=== PATIENT | female | born 1965 | race Caucasian/White ===

== ENCOUNTER 2018-06-26 06:35 | Inpatient (IN) ==
--- NOTE | 2018-06-01 15:58 | PAT Medication Instructions ---
Medication Instructions Date of Service June 01, 2018 Home Medications Colagen 1 dose PO QAM calcium carbonate-vitamin D3 1 tab PO HS carvedilol 12.5 mg PO BID cyanocobalamin (vitamin B-12) 5,000 mcg SUBLINGUAL QAM hydrochlorothiazide 25 mg PO QAM lactobacillus combination no.4 3,000 mmu cells PO QAM levothyroxine 25 mcg PO HS multivitamin 2 cap PO QAM olmesartan 40 mg PO HS pantoprazole 40 mg PO HS turmeric 1 dose PO QAM STOP taking 2 weeks before surgery (or as soon as possible if surgery is within 2 weeks) Colagen 1 dose PO QAM turmeric 1 dose PO QAM DO NOT take the morning of surgery cyanocobalamin (vitamin B-12) 5,000 mcg SUBLINGUAL QAM hydrochlorothiazide 25 mg PO QAM lactobacillus combination no.4 3,000 mmu cells PO QAM multivitamin 2 cap PO QAM Take morning of surgery With a small sip of water, OTHERWISE NOTHING TO EAT OR DRINK AFTER MIDNIGHT: carvedilol 12.5 mg PO BID Take evening before surgery calcium carbonate-vitamin D3 1 tab PO HS carvedilol 12.5 mg PO BID levothyroxine 25 mcg PO HS olmesartan 40 mg PO HS pantoprazole 40 mg PO HS Other Notes If you have any questions please call us at [phone] or [phone] or [phone] or [phone]
--- NOTE | 2018-06-04 09:57 | Anesthesiology Consultation ---
Date of Service June 04, 2018 Assessment & Plan (1) Encounter for pre-operative examination: Chart Review Chart Review: Acceptable Risk for Surgery and Patient seen in Pre Admission Testing Teaching & Discussion Pre-Anesthesia Teaching/Discussion Notes: Instructed NPO after midnight before surgery,except medications with 15 cc of water. Medication instructions provided according to the PAT guidelines. History Surgery Operation Date: 06/26/18 08:50 Proposed Procedures p Left Arthroplasty Uni Compartment Versus - Guanakito Donovan MD s Left Total Knee Arthroplasty - Guanakito Donovan MD Height/Weight Height: 5 ft 4 in Weight: 122.9 kg Allergies Allergy/AdvReac Type Severity Reaction Status Date / Time No Known Allergies Allergy Verified 05/31/18 15:27 Medications Home Medications Medication Instructions Recorded Confirmed Last Taken Colagen 1 dose PO QAM 05/31/18 05/31/18 Unknown calcium carbonate-vitamin D3 1 tab PO 05/31/18 05/31/18 Unknown [Calcium 500 + D (D3)] carvedilol 12.5 mg PO BID 05/31/18 05/31/18 Unknown cyanocobalamin (vitamin B-12) 5,000 mcg SUBLINGUAL QAM 05/31/18 05/31/18 Unknown [Vitamin B-12] hydrochlorothiazide 25 mg PO QAM 05/31/18 05/31/18 Unknown lactobacillus combination no.4 3,000 mmu cells PO QAM 05/31/18 05/31/18 Unknown [Probiotic] levothyroxine 25 mcg PO 05/31/18 05/31/18 Unknown multivitamin 2 cap PO QAM 05/31/18 05/31/18 Unknown olmesartan 40 mg PO 05/31/18 05/31/18 Unknown pantoprazole 40 mg PO 05/31/18 05/31/18 Unknown turmeric 1 dose PO QAM 05/31/18 05/31/18 Unknown Past Medical History Medical History Hypertension (Chronic) GERD (gastroesophageal reflux disease) CONTROLLED Hypothyroidism Morbid obesity Past Surgical History Surgical History History of cholecystectomy History of colonoscopy History of herniorrhaphy VENTRAL History of hysterectomy BSO Hx of LASIK Past Anesthesia History No Hx of Anesthesia Complications and No Family Hx of Anesthesia Complications History of PONV No Motion Sickness Screening History of Motion Sickness: Yes (OCCASIONAL) Social History Smoking Status: Never smoker Do You Dip or Chew Tobacco: No Hx Alcohol Use: No Hx Substance Use: No Exercise / Class Metabolic Activity III < 4 Walking/Shop/Light housework Review of Systems Patient denies chest pain, shortness of breath, cough, wheezing, palpitations. Physical Exam Vital Signs VITALS BP 117/76 P 69 TEMP 98.0 SP02 94%RA RESP 16 PHYSICAL Full neck and c-spine range of motion. Full TMJ range of motion. TMD 3 finger breaths Mallampati Score 2 Dentition: upper/lower partial Lungs: clear throughout to auscultation Cardiac: regular rate and rhythm, no murmurs noted Spine: normal Carotid arteries: negative bruit Extremities: no edema Large neck Testing Electrocardiogram Date: 06/04/18 NSR at 65bpm. NS TWA. Chest X-Ray Date: 06/04/18 Findings: + NAD Laboratory Results 06/04/18 10:10 06/04/18 10:10 Blood Type B Positive 06/04/18 10:10 Antibody Screen NEGATIVE 06/04/18 10:10 PT 10.9 Seconds (9.0-12.0) 06/04/18 10:10 INR 1.1 (0.9-1.1) 06/04/18 10:10 APTT 26.2 Seconds (21.0-31.0) 06/04/18 10:10
--- NOTE | 2018-06-04 10:44 | XRay Report ---
XR chest Pre-admission PA/Lat CLINICAL HISTORY: pat preoperative evaluation COMPARISON STUDY: No previous studies for comparison. FINDINGS: The bones soft tissues and hemidiaphragms are normal. The cardiomediastinal silhouette is n ormal. The lungs are clear. The pulmonary vasculature is normal. IMPRESSION: Negative chest. The above report was generated using voice recognition software. It may contain grammatical, syntax or spelling errors. Electronically signed by: Moom Otoole M.D. 06/04/2018 10:43 AM
[2018-06-04 10:58] LABS: Basophils # (auto) 0.01 K/uL (0-0.2); Basophils % (auto) 0.2 %; Eosinophils # (auto) 0.14 K/uL (0-0.5); Eosinophils % (auto) 2.8 %; Hematocrit (blood only) 39.7 % (37-47); Hemoglobin 13.2 g/dL (12.0-16.0); Lymphocytes # (auto) 1.37 K/uL (1.2-3.4); Mean Corpuscular Hgb Conc 33.2 g/dL (32-36); Mean Corpuscular Volume 87.4 fL (80-100); Monocytes # (auto) 0.31 K/uL (0.11-0.59); Monocytes % (auto) 6.1 %; Neutrophils # (auto) 3.24 K/uL (1.4-6.5); Neutrophils % (auto) 63.9 %; Platelet Count 244 K/uL (130-400); RDW Coefficient of Variation 13.4 % (11.5-14.5); Red Blood Count 4.54 M/uL (4.2-5.4); White Blood Count 5.07 K/uL (4.8-10.8)
[2018-06-04 11:16] LABS: INR 1.1 (0.9-1.1); Partial Thromboplastin Time 26.2 Seconds (21.0-31.0); Prothrombin Time 10.9 Seconds (9.0-12.0)
[2018-06-04 11:33] LABS: BUN Creatinine Ratio 18.5 (10-20); Calcium 9.4 mg/dl (8.5-10.1); Creatinine Clr Calc Pharmacy 115.9 ml/min; Est GFR (African American) 111.1; Est GFR (Non-African American) 95.9
[2018-06-04 11:34] LABS: C Reactive Protein 1.06 mg/dl (0-0.29)
--- NOTE | 2018-06-21 23:41 | History and Physical Report ---
DATE OF ADMISSION: 06/26/2018 CHIEF COMPLAINT: Left medial knee pain and discomfort. HISTORY OF PRESENT ILLNESS: The patient is a 53-year-old female referred to me by my partner, Dr. Velasquez, for surgical treatment of her left knee. She has about a little over a year history of increasing left knee pain and discomfort which has gradually gotten worse over time. No trauma. Pain is all medial. The patient has been through extensive conservative treatment including injections which provided some temporary relief only. This has become less successful over time. The more she walks, the more it hurts. Pain is all medial. Occasionally giving out. It is affecting her quality of life and her daily activities. She has nighttime pain. She would like to proceed with surgical treatment. PAST MEDICAL HISTORY: 1. Hypertension. 2. Hypothyroidism. 3. Low back pain/sciatica. 4. Gastroesophageal reflux disease. 5. Obesity with a BMI of 46. PAST SURGICAL HISTORY: Include: 1. Hysterectomy. 2. Hernia surgery. 3. Lasik eye surgery. ALLERGIES: None. CURRENT MEDICINES: 1. Calcium plus D. 2. Levothyroxine 25 mcg a day. 3. Pantoprazole 40 mg. 4. Turmeric. 5. Multivitamin. 6. Olmesartan 40 mg a day. 7. Probiotic. 8. Osteo Bi-Flex. SOCIAL HISTORY: A 53-year-old female. The patient is . Lives in [place]. No significant alcohol intake. She has 3 children. FAMILY HISTORY: Noncontributory. REVIEW OF HISTORY: Negative for diabetes, neurologic problems, vascular problems, or bleeding disorders. No chest pain or shortness of breath. No history of DVT or PE. No bleeding problems. PHYSICAL EXAMINATION: GENERAL: Reveals a pleasant, middle-aged female. Looks to be in pretty good health. HEENT: Benign. NECK: Supple. No lymphadenopathy. LUNGS: Clear to auscultation. HEART: Has a regular rate and rhythm. ABDOMEN: Soft, nontender, nondistended. EXTREMITIES: Grossly neurovascularly intact except as follows: Examination of the left leg reveals the patient ambulates independently. She has fairly neutral to slight varus alignment to her knee. She has got a small to moderate sized knee effusion. Moderate soft tissue envelope. Range of motion 0-125 degrees. There is no instability. ACL is intact. No pivot. No pain with hip motion. X-RAYS: X-rays of the left knee were reviewed. Shows advanced medial compartment arthritis. She has near complete loss of medial joint space. There may be a small section of AVN of the medial femoral condyle and medial tibial plateau. The lateral compartments were well preserved. With stress testing, the lateral compartment is well preserved. Minimal patellofemoral arthritis. ASSESSMENT: A 53-year-old female with 1-1/2 year history of persistent progressive left medial sided knee pain, unresponsive to conservative treatment. She would like to proceed with definitive treatment. PLAN: We talked about treatment options including partial versus full knee replacement. We are going to plan and take her to the operating room and do a left partial knee replacement. If we get in there and disease is too bad, we will do a full knee replacement. The risks and benefits of this procedure were explained to the patient including but not limited to DVT, PE, , infection, neurological injury, vascular injury, bleeding problem, pain, limited range of motion, stiffness, failure to relieve symptoms, incomplete relief of symptoms, need for further surgery in the future, fracture, leg length inequality, nerve palsy, dislocation, etc. The patient understands and desires to proceed. Informed consent was obtained.
[~2018-06-26 06:35] MED LIST: ACETAMINOPHEN 500 MG TAB PO SCH; BUPIVACAINE LIPOSOME/PF 266 MG, BUPIVACAINE/EPINEPHRINE 50 ML, SODIUM CHLORIDE 0.9% 30 ... INFIL SCH; CEFAZOLIN 2000MG 2,000 MG/15 ML SYR IV SCH; FAMOTIDINE 20 MG TAB PO SCH; GABAPENTIN 300 MG x 3 PO SCH; LR 500ML BOLUS, THEN 15ML/HR IV SCH; LR 60ML/HR IV SCH; METOCLOPRAMIDE HCL 10 MG TABLET PO SCH; MIDAZOLAM HCL 1 MG/ML 2ML VIAL ONE; SCOPOLAMINE 1.5 MG TDSY TD SCH; TRANEXAMIC ACID 1,000 MG **IV Intra-op IV SCH
[2018-06-26] MEDS ORDERED: ROPIVACAINE 0.5% 5 MG/ML 30 ML VIAL ONE (06:36)
[2018-06-26] MEDS ORDERED: BUPIVACAINE 0.5 % 5 MG/1 ML PF 10ML VIAL ONE (06:36)
[2018-06-26] MEDS ORDERED: fentaNYL citrate 100 MCG/2 ML VIAL ONE (06:36)
[2018-06-26] MEDS ORDERED: MIDAZOLAM HCL 1 MG/ML 2ML VIAL ONE (06:36)
--- NOTE | 2018-06-26 06:48 | History & Physical Bridge Note ---
Date of Service June 26, 2018 History & Physical Bridge Note I have examined the patient, reviewed the History & Physical and in the interval since the performance of the History & Physical I have noted the following changes of clinical significance: no changes noted
[2018-06-26] MEDS ORDERED: PROPOFOL IV EMULSION 10 MG/ML 20 ML VIAL IV ONE (08:21)
[2018-06-26] MEDS ORDERED: LIDOCAINE HCL 2% 2 ML VIAL/AMP(20MG/ML) INFIL ONE (08:21)
[2018-06-26] MEDS ORDERED: ONDANSETRON INJ 2 MG/ML 2 ML VIAL ONE (08:22)
[2018-06-26] MEDS ORDERED: ePHEDrine sulfate 50 MG/ML AMP IV PRN (08:25)
[2018-06-26] MEDS ORDERED: HYDROmorphone INJ 1 MG/ML SYRINGE IV PRN (08:25)
[2018-06-26] MEDS ORDERED: ATROPINE SULFATE 0.1 MG/ML 10ML SYR IV PRN (08:25)
[2018-06-26] MEDS ORDERED: PHENYLEPHRINE 100MCG/ML 5ML SYR IV PRN (08:25)
[2018-06-26] MEDS ORDERED: KETOROLAC 30 MG/ML VIAL IV PRN (08:25)
[2018-06-26] MEDS ORDERED: ONDANSETRON INJ 2 MG/ML 2 ML VIAL IV PRN ×2 (08:25→12:27)
[2018-06-26] MEDS ORDERED: EPINEPHrine INJ 1 MG/ML AMP ONE (08:53)
[2018-06-26] MEDS ORDERED: BACITRACIN INJ 50,000 UNIT VIAL ONE (08:53)
[2018-06-26] MEDS ORDERED: BUPIVACAINE 0.25% 30 ML VIAL ONE (08:53)
[2018-06-26] MEDS ORDERED: SODIUM CHLORIDE 0.9% PF 50 ML VIAL ONE (08:53)
[2018-06-26] MEDS ORDERED: BUPIVACAINE LIPOSOME 1.3% 266 MG/20 ML VIAL ONE (08:53)
[2018-06-26] MEDS ORDERED: PHENYLEPHRINE 100MCG/ML 5ML SYR ONE (09:44)
[2018-06-26] MEDS ORDERED: PHENYLEPHRINE HCL 10 MG/ML VIAL ONE (09:56)
[2018-06-26] MEDS ORDERED: SODIUM CHLORIDE 0.9% INJ 10 ML VIAL ONE (09:57)
[2018-06-26] MEDS ORDERED: ePHEDrine sulfate 50 MG/ML AMP ONE (09:57)
--- NOTE | 2018-06-26 11:03 | Post Operative Brief Note ---
Immediate Post Op Note v1 Date of Surgery June 26, 2018 Pre & Post Diagnosis Operation Date: 06/26/18 08:50 Pre-Op Diagnosis: Left Knee Advanced Medial Compartment Arthritis Post-Op Diagnosis: Left Knee Advanced Medial Compartment Arthritis Procedure Operation Date: 06/26/18 08:50 Actual Procedures p Left Knee Arthroplasty Unicompartmental(Left) - Guanakito Donovan MD Surgeon Guanakito Donovan MD Superintendent Power Tatiana, PAC Estimated Blood Loss 25 Findings Consistent with Post-Op Diagnosis Fluids 1000 cc Specimens Left Knee Drains Cornelius Catheter (A 16 Lithuanian cornelius catheter was inserted by JOY Swan, without difficulty, clear yellow urine obtained, output to be monitored by Anesthesia.) Anesthesia Type Spinal MAC Complications none Disposition Accompanied Patient To Recovery: No Disposition: Recovery Room
--- NOTE | 2018-06-26 11:28 | XRay Report ---
LEFT KNEE 2 VIEWS History: Left total knee medial unicondylar prosthesis. Degenerative arthritis. Postop. FINDINGS: The patient is status post a left medial unicondylar prosthesis. The hardware is intact. No fracture or dislocation. Skin fabiola are in place. IMPRESSION: Left medial unicondylar prosthesis. No evidence for hardware complication. Electronically signed by: Fabrizio Donaldson M.D. 06/26/2018 11:26 AM
--- NOTE | 2018-06-26 12:09 | Anesthesiology Progress Note ---
Date of Service June 26, 2018 Anesthesia Post Procedure Vital Signs Vital Signs: Temp Pulse Pulse Resp BP Pulse Ox 06/26/18 12:00 36.3 C L 66 14 119/63 99 06/26/18 11:50 62 18 124/68 100 06/26/18 11:40 62 15 117/69 96 06/26/18 11:30 65 19 101/60 100 06/26/18 11:20 68 15 107/68 99 06/26/18 11:10 36.0 C L 67 21 91/56 L 99 06/26/18 07:24 36.4 C L 77 20 146/99 H 95 Transfer of Care Handoff Completed per policy Notes Mental Status: alert / awake / arousable Patient Amnestic to Procedure: Yes Nausea / Vomiting: adequately controlled Pain: adequately controlled Airway Patency, RR, SpO2: stable & adequate BP & HR: stable & adequate Hydration State: stable & adequate Anesthetic Complications: no major complications apparent
[2018-06-26] MEDS ORDERED: METOCLOPRAMIDE HCL INJ 5 MG/ML 2 ML VIAL IV PRN (12:27)
[2018-06-26] MEDS ORDERED: ALUMINUM/MAGNESIUM SUSP 30 ML UDC PO PRN (12:27)
[2018-06-26] MEDS ORDERED: BISACODYL 10 MG SUPP PR PRN (12:27)
[2018-06-26] MEDS ORDERED: NALOXONE HCL 0.4 MG/1 ML VIAL/CARP IV PRN (12:27)
[2018-06-26] MEDS ORDERED: HYDROmorphone INJ 0.5 MG/0.5 ML SYR IV PRN (12:27)
[2018-06-26] MEDS ORDERED: MAGNESIUM HYDROXIDE SUSP 30 ML UDC PO PRN (12:27)
--- NOTE | 2018-06-26 13:40 | Progress Note ---
DATE: 06/26/2018 SUBJECTIVE: A 53-year-old female postop from a left partial knee replacement. She is doing pretty well. Feels just tired. Has not got the sensation back in her legs yet. No chest pain or shortness of breath. Not feeling dizzy or lightheaded. No leg pain. OBJECTIVE: VITAL SIGNS: Temperature 36.5. Vital signs stable. GENERAL: Physical examination shows a pleasant, middle-aged female. She is sitting up in bed and was sleeping when I went in this afternoon. She is easily arousable. LUNGS: Clear to auscultation. HEART: Regular rate and rhythm. ABDOMEN: Soft, nontender, nondistended. EXTREMITIES: Grossly neurovascularly intact except as follows: Examination of the left leg reveals the leg to be well aligned. Toes are pink with brisk refill. She has no significant sensory or motor function yet. X-RAYS: X-rays of the left knee from recovery room reviewed. She has a left partial knee replacement. Components looked to be in good position. No signs of problems. ASSESSMENT: A 53-year-old white female postop from a left partial knee replacement, doing well. Spinal still in effect. Her pain is controlled. PLAN: 1. DVT prophylaxis including thigh-high TEDs, SCDs, and aspirin twice a day. 2. PT/OT. Weight bear as tolerated. Left total knee protocol. 3. Pain control, doing well with current pain regimen. We will have to adjust medicines as the spinal wears off. 4. IV antibiotics x24 hours. 5. Disposition: She is planning to be discharged to home. She is trying to decide whether do home health versus outpatient therapy.
[2018-06-26] MEDS: ACETAMINOPHEN 500 MG TAB PO SCH ×2 (14:24→22:15)
[2018-06-26] MEDS: KETOROLAC 30 MG/ML VIAL IV SCH ×2 (14:25→20:45)
[2018-06-26] MEDS: SODIUM CHLORIDE 0.9% 1000ML 1,000 ML IV SCH ×2 (14:25→22:15)
[2018-06-26] MEDS: CHECK SCOPOLAMINE PATCH PLACEMENT SCH (15:25)
--- NOTE | 2018-06-26 16:54 | Operative Report ---
DATE OF OPERATION: 06/26/2018 SURGEON: Guanakito Donovan MD CRT: JOY Jordan PREOPERATIVE DIAGNOSIS: Left knee medial compartment degenerative joint disease. POSTOPERATIVE DIAGNOSIS: Left knee medial compartment degenerative joint disease. PROCEDURE PERFORMED: Left Biomet Montgomery mobile bearing partial knee replacement. COMPLICATIONS: None. ESTIMATED BLOOD LOSS: 25 mL. FLUID REPLACEMENT: 1000 mL crystalloid fluid replacement. TOURNIQUET TIME: 64 minutes at 300 mmHg. ANESTHESIA: Spinal with adductor canal block. DRAINS: None. SPECIMENS: Left knee sent for pathology. OPERATIVE INDICATIONS: The patient is a 53-year-old female who was referred to me by my partner Dr. Velasquez for surgical treatment of her left knee. She had a fairly long history of left knee pain and discomfort which has gotten significantly worse over the past year. She has been through extensive conservative treatment. Symptoms localized in the medial side of her knee. X-rays show advanced medial compartment arthritis. The patient elected to proceed with operative treatment. OPERATIVE FINDINGS: Operative findings revealed advanced medial compartment DJD. She had grade 4 [id number] disease of the medial femoral condyle and medial tibial plateau. Not much eburnation, but full cartilage loss. The lateral and patellofemoral compartments were fairly well preserved. Moderate size joint effusion. She had osteophytes in the medial compartment. OPERATIVE IMPLANTS: Operative implants consisted of: 1. Biomet Montgomery size small femoral component. 2. Biomet left medial AA tibial tray. 3. Biomet Montgomery left medial size 5 mm mobile-bearing insert. OPERATIVE PROCEDURE: The patient was taken to the operating room, identified and placed on the operating table in supine position. All contact areas were appropriately padded. IV antibiotics were provided by anesthesia team. A spinal anesthetic and adductor canal block had been provided in the holding area. Pacheco catheter was placed in sterile fashion. Left thigh tourniquet was then placed and the left lower extremity was then prepped and draped in usual sterile fashion. Left leg was elevated and exsanguinated with Esmarch and tourniquet was placed at 300 mmHg. An anterior approach to the left knee was then performed through a longitudinal incision centered over the anterior aspect of the knee. The incision extended from the superior pole of the patella to just medial to the tibial tubercle. Sharp dissection was carried through the subcutaneous tissues down to the level of the extensor mechanism. Medial parapatellar arthrotomy incision was made. Slight subperiosteal dissection was carried out medially, taking great care to protect the MCL. The fat pad was resected. I then examined the rest of the knee joint and the lateral patellofemoral compartment looked pretty well preserved. We elected to proceed with a partial knee replacement. The osteophytes were taken off the distal femur. The femur was sized to a size small. The small spoon was placed. The external tibial alignment jig was then placed in the anterior face of the tibia and attached to the small spoon. The tibial guide was pinned in place. Proximal tibial cut was made. Tibia was sized to a size AA. Attention was then drawn to the femur. The distal femur was entered with a sharp drill. Intramedullary terrence was placed. A small femoral template was then placed and attached to the intramedullary terrence. The holes were drilled for the femoral component. Posterior cutting guide was placed and posterior cut was made. The 0 spigot was placed and the distal femur was milled. The medial meniscus was excised. I then trialed the knee and the 4 feeler gauge fit good in flexion and the 2 in extension. Therefore, all implants were removed. A 2 spigot was placed and the distal femur was milled. I then trialed the knee again and the 4 insert fit appropriately in flexion and extension. There was a little bit better in extension. We elected to place these implants. All trial implants were removed. I used the posterior osteophyte cutting guide to remove the posterior osteophyte as well as create the anterior bone resection for the femoral component. Cement drill was used to create some holes in the distal femur for interdigitation. The tibial tray was pinned and the toothbrush blade was used to create the keel for the tibial tray. All extraneous debris was removed. I then trialed the knee one more time and the 5 implant fit most appropriately in flexion and extension. I elected to use these implants. All trial implants were removed again. I irrigated the wound extensively. A single batch of Palacos G cement was mixed. A Biomet Montgomery size AA tibial tray was cemented in place followed by a small femoral component. A 5 sizing spoon was then placed. All extraneous cement was removed. The knee was brought down to 30 degrees show full extension until cement hardened. Final cement check was then performed. I irrigated again extensively. I then trialed the knee one more time and I elected to place the 5 insert. A 5 insert was placed. The knee was irrigated again. I injected locally with 100 mL of a combination of 20 mL of Exparel, 30 mL of normal saline, 50 mL of 0.25% Marcaine with epinephrine. The tourniquet was then let down for a tourniquet time of 64 minutes. Hemostasis was assured with use of electrocautery. The extensor mechanism was then closed with #1 Vicryl suture in a [id number] fashion. Extensor mechanism was checked and found to be intact. Subcutaneous tissues were then closed with #2 Dexon suture in a buried interrupted fashion. Skin was closed with skin fabiola. Leg was then cleaned, dried and a sterile dressing of Xeroform, 4 x 4, sterile cast padding and Jake bandage were applied. The patient then transferred to the recovery room in stable condition. The patient tolerated the procedure well with no complication. All needle and sponge counts were correct at the end of the operation. I attest to the content of the Intraoperative Record and any orders documented therein. Any exception s are noted below.
[2018-06-26] MEDS: CEFAZOLIN 2000MG 2,000 MG/15 ML SYR IV SCH (18:26)
[2018-06-26] MEDS: ASCORBIC ACID 500 MG TAB PO SCH (18:27)
[2018-06-26] MEDS: CARVEDILOL 12.5 MG TAB PO SCH (20:42)
[2018-06-26] MEDS: LEVOTHYROXINE SODIUM 25 MCG TABLET PO SCH (20:43)
[2018-06-26] MEDS: ASPIRIN 81 MG ECTAB PO SCH (20:44)
[2018-06-26] MEDS: DOCUSATE SODIUM 100 MG CAP PO SCH (20:45)
[2018-06-26] MEDS ORDERED: PANTOprazole 40 MG TAB PO SCH (21:00)
[2018-06-26] MEDS ORDERED: CALCIUM 600MG + VIT D 400 IU TAB PO SCH (21:00)
[2018-06-26] MEDS ORDERED: OLMESARTAN MEDOXOMIL 40 MG TAB PO SCH (21:00)
[2018-06-26] MEDS ORDERED: SENNA 8.6 MG TAB PO SCH (21:00)
[2018-06-26] MEDS ORDERED: NURSING DECISION MEDICATION ONE (21:56)
[2018-06-26] MEDS ORDERED: COUGH DROP (SUGAR FREE) LOZ 24 LOZ/1 BOX BUCCAL PRN (22:00)
[2018-06-26] MEDS: TRAMADOL HCL 50 MG TABLET PO PRN (22:15)
[2018-06-27] MEDS: CHECK SCOPOLAMINE PATCH PLACEMENT SCH (00:24)
[2018-06-27] MEDS: KETOROLAC 30 MG/ML VIAL IV SCH ×3 (03:00→13:15)
[2018-06-27] MEDS: CEFAZOLIN 2000MG 2,000 MG/15 ML SYR IV SCH (03:00)
[2018-06-27] MEDS: SODIUM CHLORIDE 0.9% 1000ML 1,000 ML IV SCH (05:48)
[2018-06-27] MEDS: LEVOTHYROXINE SODIUM 25 MCG TABLET PO SCH (05:48)
[2018-06-27] MEDS: ACETAMINOPHEN 500 MG TAB PO SCH ×2 (05:48→14:13)
--- NOTE | 2018-06-27 08:50 | Anesthesiology Progress Note ---
Date of Service June 27, 2018 Anesthesia Post Procedure Vital Signs Vital Signs: Temp Pulse Pulse Pulse Resp BP Pulse Ox 06/27/18 07:44 36.8 C 76 16 141/82 H 93 06/27/18 03:02 37.0 C 76 16 102/64 92 06/26/18 22:57 36.6 C 69 16 129/80 91 06/26/18 16:46 58 L 18 125/71 98 06/26/18 15:09 36.5 C 64 18 116/72 99 06/26/18 14:15 36.4 C L 62 18 117/73 98 06/26/18 13:15 36.3 C L 70 18 146/87 H 95 06/26/18 12:44 72 18 143/83 H 96 06/26/18 12:15 36.5 C 70 18 120/77 96 06/26/18 12:00 36.3 C L 66 14 119/63 99 06/26/18 11:50 62 18 124/68 100 06/26/18 11:40 62 15 117/69 96 06/26/18 11:30 65 19 101/60 100 06/26/18 11:20 68 15 107/68 99 06/26/18 11:10 36.0 C L 67 21 91/56 L 99 Pain Intensity Left Knee: Pain Intensity: 2 Notes Mental Status: alert / awake / arousable and participated in evaluation Patient Amnestic to Procedure: Yes Nausea / Vomiting: adequately controlled Pain: adequately controlled Airway Patency, RR, SpO2: stable & adequate BP & HR: stable & adequate Hydration State: stable & adequate Neuraxial Anesthesia: was administered and sensory block resolved Anesthetic Complications: no major complications apparent and Pt Satisfied with anesthetic care
[2018-06-27] MEDS ORDERED: LACTOBACILLUS ACIDOPHILUS (FLORANEX) TAB PO SCH (09:00)
[2018-06-27] MEDS ORDERED: MULTIVITAMIN TAB PO SCH (09:00)
[2018-06-27] MEDS ORDERED: MULTIVITAMIN PO SCH (09:00)
[2018-06-27] MEDS ORDERED: hydroCHLOROthiazide 25 MG TAB PO SCH (09:00)
[2018-06-27] MEDS ORDERED: TURMERIC PO SCH (09:00)
[2018-06-27] MEDS ORDERED: CYANOCOBALAMIN (VITAMIN B-12) 2,500 MCG TAB.SUBL SL SCH (09:00)
[2018-06-27] MEDS ORDERED: COLAGEN PO SCH (09:00)
[2018-06-27] MEDS: CARVEDILOL 12.5 MG TAB PO SCH (09:07)
[2018-06-27] MEDS: ASPIRIN 81 MG ECTAB PO SCH (09:07)
[2018-06-27] MEDS: ASCORBIC ACID 500 MG TAB PO SCH (09:09)
[2018-06-27] MEDS: DOCUSATE SODIUM 100 MG CAP PO SCH (09:09)
[2018-06-27] MEDS: TRAMADOL HCL 50 MG TABLET PO PRN (09:12)
[2018-06-27 11:46] VITALS: BP 144/80; TEMP 97.5; O2SAT 92
--- NOTE | 2018-06-27 15:07 | Progress Note ---
DATE: 06/27/2018 SUBJECTIVE: A 53-year-old white female postop day 1 from a left partial knee replacement. She is doing well. Therapy went well. No chest pain or shortness of breath. Not feeling dizzy or lightheaded. She feels that she is okay to go home. OBJECTIVE: VITAL SIGNS: Temperature 36.4. Vital signs stable. GENERAL: Physical examination reveals a healthy, pleasant middle-aged female. I had to wake her when I went into her room this afternoon. She looks comfortable. EXTREMITIES: Examination of the left lower extremity reveals the dressing to be clean, dry and intact. She can dorsiflex and plantarflex her foot appropriately. Calf is soft and supple. She can do a good straight leg raise. LABORATORY DATA: None. ASSESSMENT: A 53-year-old white female postop day 1 from a left partial knee replacement, doing well. Pain is controlled. She is neurologically intact. PLAN: 1. DVT prophylaxis including thigh-high TEDs, SCDs, and aspirin twice a day. 2. PT/OT. Weight bear as tolerated. Left total knee protocol. 3. Pain control, doing well with current pain regimen. 4. Disposition: She is planning to discharge to home and do outpatient therapy later today.
[2018-06-27 17:35] VITALS: PULSE 77
--- NOTE | 2018-06-30 00:10 | Discharge Summary ---
ADMITTING PHYSICIAN AND SURGEON: Dr. Guanakito Donovan. ADMITTING DIAGNOSIS: Left knee medial compartment degenerative joint disease. SURGERY PERFORMED: Left partial knee replacement. SECONDARY DIAGNOSES: Hypertension, hypothyroidism, low back pain, sciatica, gastroesophageal reflux disease, obesity. CONSULTS: None obtained. HISTORY AND PHYSICAL EXAMINATION: Well documented in the patient's chart. HOSPITAL COURSE: The patient was admitted on 06/26/2018 and underwent partial knee replacement. She tolerated the procedure well. There were no complications. She was transferred to the PACU postoperatively and later to the orthopedic floor for further care. She was given Ancef for antibiotic prophylaxis, SOFIA stockings, SCDs and aspirin for DVT prophylaxis. Vital signs were monitored during hospital stay and remained stable. She did not require any blood transfusion. There were no complications. By postoperative day 1, she was tolerating a regular diet, pain was controlled with oral pain medicine. She was participating in physical therapy. On postop day 1, she was discharged home. She was given printed discharge instructions including new prescriptions for Tylenol, aspirin and tramadol. Continue her home medications, continue physical therapy, weightbearing as tolerated, SOFIA stockings. Follow up in approximately 2 weeks postop or sooner if any problems or concerns.
== END 2018-06-27 18:30 | disposition home or self-care (01) | DRG 470 ==
LOC: ASU 06:35 → 3E 11:08

== ENCOUNTER 2024-01-24 10:27 | Inpatient (IN) ==
--- NOTE | 2024-01-24 10:58 | Emergency Department Note ---
Impression & Plan Fever, UTI (urinary tract infection), Hypomagnesemia, Hypotension ED Provider Note ED Provider Note NAME: JEFF WEST AGE:58 SEX: Female : 1965 ARRIVES VIA: Private vehicle INFORMANT: Patient ED PROVIDER(s): Kim Rangel DO CHIEF COMPLAINT: Fever, body aches HPI: This is a 58-year-old female who presents emerged department complaining of fever, body aches, and fatigue. She states symptoms began last night or worse this morning. Patient did recently have removal of a large kidney stone and placement of an ureteral stent. Stent was removed yesterday by urology in the office. She states following the procedure she did take a 1 week course of antibiotics. No other obvious known sick contacts however patient does work at a school. She states she still has left flank and back pain, no dysuria or hematuria. No recent change in stools, no other evolving abdominal pain, no other URI symptoms. She denies any cough or shortness of breath. PAST MEDICAL HISTORY:See Below PAST SURGICAL HISTORY:See Below FAMILY HISTORY:See Below SOCIAL HISTORY:See Below HOME MEDICATIONS:See Below ALLERGIES:See Below VITALS:See Below PHYSICAL EXAMINATION: GENERAL: alert, well appearing, well nourished, no distress, non-toxic, BMI 45 EYE EXAM: normal conjunctiva, PERRL and EOM's grossly intact OROPHARYNX: no exudate, no erythema, lips, buccal mucosa, and tongue normal and mucous membranes are moist NECK: supple, no nuchal rigidity, no adenopathy, non-tender LUNGS: Clear to auscultation. Normal chest wall mechanics, no w/r/r HEART: no murmurs, S1 normal and S2 normal ABDOMEN: abdomen soft, non-tender, normo-active bowel sounds, no masses, no rebound or guarding. BACK: Back is symmetrical on inspection and there is no deformity, mild left CVA tenderness. SKIN: no rashes, petechiae, orbruising UPPER EXTREMITIES: upper extremities are grossly normal. FROM, nml pulses b/l. LOWER EXTREMITIES: No pitting edema. FROM, nml pulses b/l. NEURO EXAM: Normal sensorium, cranial nerves II-XII grossly intact, normal speech, no facial droop,nogross weakness of arms, no gross weakness of legs. Gross sensation intact. No ataxia. Vital Signs: reviewed and remarkable Differential Diagnosis: uti, post op complication, pyelo, perf, bladder stone, GILBERTO, sepsis, ureteral injury from stenting, colitis, diverticulitis, URI, as well as others were considered MEDICAL DECISION MAKING: THis is a 58 yo female who presents to the ER with concern for weakness, fatigue, decreased appetite and fever. Patient with recent treatment of kidney stone with stent placement removal yesterday. Patient initially afebrile with stable VS. Labs including cultures drawn and sent, IV established, EKG and CXR performed and interpreted at bedside, and patient placed on telemetry. Nasal swab sent also for viral panel. Patient started on IVF and given IV tylenol. Urine collected and patient sent for CT a/p. Urine abnormal however could also be related to stent placement/removal. Mild leukocytosis noted, no GILBERTO. Hypomagnesemia noted and she was given IV repletion. Lactic acid and procal reassuring. CT suggestive of ascending UTI, no stones, no fulminant pyelo. Patient began having downtrending BP and additional IVF added. Initially hypotension thought more likely from dehydration and concurrent mag infusion however continued after mag was finished. Patient reported feeling improved and asked for po intake. She still had hypotension following 30 ml/kg based on IBW and IVF continued to hit 30 ml/kg based on ABW. She was still hypotensive after this and so levaphed was started due to concern for evolving sepsis/septic shock. Case had already been referred to the hospitalist team for additional evaluation however given persistent hypotension and need for pressors they were updated due to concern for placement in an appropriate unit. Patient rechecked multiple times by me while in the ER and patient/family updated several times additionally. Consultation(s): 1507: Discussed with Kamryn Thacker NP with urology via [place] text. Agrees with plan for IV antibiotics and observation. No need for any surgical intervention at this time. 1600: Discussed with Dr. Meneses, [place] hospitalist team, for additional evaluation and mgmt. ER Treatment Provided: See below 1715: Levophed drip added after patient had met requirements for 30 mL/kilogram based on actual body weight at bedside and was persistently hypotensive. Hospitalist updated. Diagnostics Interpreted By Me: -ECG: Normal sinus at 90, normal axis, normal intervals, no acute ST/T wave changes, low voltage throughout -Cardiac Monitoring: An order was placed for continuous cardiac monitoring. The monitor shows a rate of 98 with normal sinus rhythm. -Laboratory studies: As stated above and show below. -Imaging studies: CT a/p - no obstructive uropathy Triage Nursing Note Reviewed Prior/Outside Records Reviewed Critical care: Critical care of 60 min performed to assess and manage high likelihood of life-threatening sepsis shock, involving labs and imaging performed with assessment to evaluate uti and sepsis diagnosis with frequent reassessment. This time includes bedside time, treatment discussions with patient/family/consultants, documentation time and excludes procedure time. Past Med/Surg History Problem List (Updated 01/26/24 @ 09:52 by Kim Rangel DO) Hypotension (Acute) E coli bacteremia Septic shock Hypomagnesemia (Acute) UTI (urinary tract infection) (Acute) Complicated UTI (urinary tract infection) Sepsis Fever (Acute) Encounter for preoperative assessment (Acute) Lumbar spondylosis Trochanteric bursitis, left hip Trochanteric bursitis, right hip Medical History Arthritis Chronic venous insufficiency Per records Diabetes mellitus, type 2 Reported hx prediabetes Diabetes hx listed per records. Most recent HgbA1C 6.9% 10/13/23 Heartburn Hyperlipidemia Hypertension Hypothyroidism Kidney stones Morbid obesity Sleep apnea CPAP Venous stasis dermatitis of both lower extremities Per records Surgical History H/O bilateral salpingo-oophorectomy History of cholecystectomy History of colonoscopy History of dilatation and curettage History of esophagogastroduodenoscopy (EGD) History of herniorrhaphy ventral History of partial hysterectomy Hx of LASIK Status post left partial knee replacement (06/2018) Status post left partial knee replacement [place] teeth removed Family History Father Hypertension Prostate cancer Stroke Brother Prostate cancer Mother Hypertension Depression Kidney disease on HD Family/Other Breast cancer great grandmother Denies family history of Ovarian cancer Myocardial infarction Colorectal cancer Social History Smoking Status: Never smoker Second Hand Exposure: No; Do You Dip or Chew Tobacco: No; Hx Alcohol Use: No Hx Substance Use: No Preferred Language: Moldovan Communication Ability: Effective Visual Impairment: No Limitations Hearing Ability: Normal 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 Beliefs That Will Affect Care: None marital status: Current Living Situation: Spouse current occupational status: employed current occupation: paraprofessional/teacher's aid How many Children do You have: 3 Feels Safe at Home: Yes Safety Concerns: Feels Safe At This Time Diet: regular Diet Comment: regular caffeine: No during the past year weight has: remained stable Dental Care, Regularly: Yes Physical Activity Frequency: Daily Seatbelt Use: always Assistive Devices: CPAP Allergies Allergies Allergy/AdvReac Type Severity Reaction Status Date / Time No Known Allergies Allergy Verified 01/11/24 07:16 Home Meds Home Medications Medication Instructions Recorded Confirmed calcium 500 mg (as 1 tab PO HS 05/31/18 01/24/24 carbonate)-vitamin D3 3.125 mcg (125 unit) tablet (Calcium) lactobacillus combination no.4 3 3,000 mmu cells PO QAM 05/31/18 01/24/24 billion cell capsule (Probiotic) multivitamin 2 cap PO QAM 05/31/18 01/24/24 turmeric 400 mg capsule 400 mg PO QAM 05/31/18 01/24/24 duloxetine 60 mg capsule,delayed 60 mg PO QAM 03/01/21 01/24/24 release hydrochlorothiazide 25 mg tablet 25 mg PO UD 10/27/23 01/24/24 meloxicam 7.5 mg tablet 7.5 mg PO QAM 11/10/23 01/24/24 atorvastatin 20 mg tablet 20 mg PO QAM 01/02/24 01/24/24 famotidine 40 mg tablet (Pepcid) 40 mg PO QAM 01/02/24 01/24/24 levothyroxine 25 mcg tablet 25 mcg PO QAM 01/02/24 01/24/24 tamsulosin 0.4 mg capsule 0.4 mg PO QAM 01/24/24 01/24/24 Previous Rx's Medication Instructions Recorded cephalexin 500 mg capsule (Keflex) 500 mg PO ONCE #4 caps 02/20/19 CPAP Supplies #1 ea 11/10/22 gabapentin 300 mg capsule 600 mg (2 x 300 mg) PO HS #180 caps 02/17/23 triamcinolone acetonide 0.5 % 1 applic topical DAILY PRN rash 06/05/23 topical cream #15 grams pantoprazole 40 mg tablet,delayed 40 mg PO HS #90 tabs 08/01/23 release carvedilol 25 mg tablet 25 mg PO BID #180 tabs 08/24/23 dulaglutide 1.5 mg/0.5 mL 1.5 mg (0.5 mL) subcut .weekly #2 10/16/23 subcutaneous pen injector mL allopurinol 100 mg tablet 100 mg PO HS #90 tabs 10/25/23 olmesartan 40 mg tablet 40 mg PO HS #90 tabs 11/01/23 phenazopyridine 200 mg tablet 200 mg PO Q8H PRN pain #10 tabs 01/11/24 (Pyridium) Results & Data (ED) Vital Signs Vital Signs - 24 hr 01/24/24 10:38 01/24/24 11:27 01/24/24 12:08 Temperature 38.1 C H 38.4 C H Temperature Source Oral Oral Pulse Rate 106 H 109 H Pulse Rate [Apical] 109 H Pulse Rate from SpO2 Sensor Pulse Rhythm [Apical] Pulse Strength [Apical] Respiratory Rate 20 28 H Respiratory Effort / Characteristics Respiratory Depth Respiratory Pattern Blood Pressure 157/79 H Blood Pressure [Left Arm] 110/69 Blood Pressure Mean 105 Blood Pressure Mean [Left Arm] 82 Blood Pressure Position [Left Arm] Pulse Oximetry 93 96 Oxygen Delivery Method Room Air Room Air Sepsis Recent Fever Within 48 Hours Yes Sepsis New/Unexplained Change in Mental Status N/A Sepsis Action Taken by Nursing No Action Required 01/24/24 13:00 01/24/24 13:00 01/24/24 13:33 Temperature Temperature Source Pulse Rate 102 H 99 H Pulse Rate [Apical] Pulse Rate from SpO2 Sensor 101 H 99 H Pulse Rhythm [Apical] Pulse Strength [Apical] Respiratory Rate 21 20 Respiratory Effort / Characteristics Respiratory Depth Respiratory Pattern Blood Pressure 110/69 Blood Pressure [Left Arm] Blood Pressure Mean 81 Blood Pressure Mean [Left Arm] Blood Pressure Position [Left Arm] Pulse Oximetry 94 92 Oxygen Delivery Method Sepsis Recent Fever Within 48 Hours Sepsis New/Unexplained Change in Mental Status Sepsis Action Taken by Nursing 01/24/24 13:49 01/24/24 13:49 01/24/24 14:04 Temperature 37.3 C 37.3 C Temperature Source Oral Oral Pulse Rate Pulse Rate [Apical] 99 H Pulse Rate from SpO2 Sensor Pulse Rhythm [Apical] Pulse Strength [Apical] Respiratory Rate 24 Respiratory Effort / Characteristics Respiratory Depth Respiratory Pattern Blood Pressure Blood Pressure [Left Arm] 94/45 L Blood Pressure Mean Blood Pressure Mean [Left Arm] 61 Blood Pressure Position [Left Arm] Pulse Oximetry 93 Oxygen Delivery Method Room Air Sepsis Recent Fever Within 48 Hours Sepsis New/Unexplained Change in Mental Status Sepsis Action Taken by Nursing 01/24/24 14:33 01/24/24 15:05 01/24/24 15:47 Temperature Temperature Source Pulse Rate Pulse Rate [Apical] 93 H 97 H 95 H Pulse Rate from SpO2 Sensor Pulse Rhythm [Apical] Regular Regular Pulse Strength [Apical] Normal Normal Respiratory Rate 18 20 20 Respiratory Effort / Characteristics Non-Labored Non-Labored Respiratory Depth Normal Normal Respiratory Pattern Regular Regular Blood Pressure Blood Pressure [Left Arm] 101/54 L 71/42 L 86/53 L Blood Pressure Mean Blood Pressure Mean [Left Arm] 69 51 64 Blood Pressure Position [Left Arm] Lying Lying Pulse Oximetry 92 91 94 Oxygen Delivery Method Room Air Room Air Room Air Sepsis Recent Fever Within 48 Hours Sepsis New/Unexplained Change in Mental Status Sepsis Action Taken by Nursing 01/24/24 15:52 01/24/24 16:49 01/24/24 17:05 Temperature Temperature Source Pulse Rate 97 H Pulse Rate [Apical] 95 H 91 H Pulse Rate from SpO2 Sensor Pulse Rhythm [Apical] Regular Regular Pulse Strength [Apical] Normal Normal Respiratory Rate Respiratory Effort / Characteristics Respiratory Depth Respiratory Pattern Blood Pressure Blood Pressure [Left Arm] 81/51 L 71/51 L Blood Pressure Mean Blood Pressure Mean [Left Arm] 61 57 Blood Pressure Position [Left Arm] Lying Lying Pulse Oximetry 92 92 Oxygen Delivery Method Room Air Room Air Sepsis Recent Fever Within 48 Hours Sepsis New/Unexplained Change in Mental Status Sepsis Action Taken by Nursing 01/24/24 18:02 01/24/24 18:07 01/24/24 18:15 Temperature Temperature Source Pulse Rate Pulse Rate [Apical] 84 85 94 H Pulse Rate from SpO2 Sensor Pulse Rhythm [Apical] Regular Regular Regular Pulse Strength [Apical] Normal Normal Normal Respiratory Rate 24 Respiratory Effort / Characteristics Non-Labored Respiratory Depth Normal Respiratory Pattern Blood Pressure Blood Pressure [Left Arm] 105/62 103/56 L 109/54 L Blood Pressure Mean Blood Pressure Mean [Left Arm] 76 71 72 Blood Pressure Position [Left Arm] Lying Lying Lying Pulse Oximetry 92 96 92 Oxygen Delivery Method Room Air Room Air Sepsis Recent Fever Within 48 Hours Sepsis New/Unexplained Change in Mental Status Sepsis Action Taken by Nursing 01/24/24 18:24 Temperature Temperature Source Pulse Rate Pulse Rate [Apical] 83 Pulse Rate from SpO2 Sensor Pulse Rhythm [Apical] Regular Pulse Strength [Apical] Normal Respiratory Rate Respiratory Effort / Characteristics Respiratory Depth Respiratory Pattern Blood Pressure Blood Pressure [Left Arm] 97/65 L Blood Pressure Mean Blood Pressure Mean [Left Arm] 75 Blood Pressure Position [Left Arm] Lying Pulse Oximetry 93 Oxygen Delivery Method Room Air Sepsis Recent Fever Within 48 Hours Sepsis New/Unexplained Change in Mental Status Sepsis Action Taken by Nursing Laboratory Data 01/26/24 03:51 01/26/24 03:51 Lab Results 01/24/24 01/24/24 01/24/24 Range/Units 11:05 11:13 11:38 WBC 12.53 H (4.8-10.8) K/ul RBC 4.04 L (4.20-5.40) M/uL Hgb 12.0 (12.0-16.0) g/dl Hct 35.5 L (37.0-47.0) % MCV 87.9 (80.0-100.0) fL MCH 29.7 (25.0-34.0) pg MCHC 33.8 (32.0-36.0) g/dL RDW Std Deviation 40.3 (36.4-46.3) fL RDW Coeff of Emma 12.5 (11.5-14.5) % Plt Count 244 (130-400) K/uL MPV 10.1 (9.4-12.4) fL Immature Gran % (Auto) 0.6 % Neut % (Auto) 93.6 % Lymph % (Auto) 3.3 % [place] % (Auto) 0.9 % Eos % (Auto) 1.4 % Baso % (Auto) 0.2 % Neut # (Auto) 11.74 H (1.40-6.50) K/uL Lymph # (Auto) 0.41 L (1.20-3.40) K/uL [place] # (Auto) 0.11 (0.11-0.59) K/uL Eos # (Auto) 0.17 (0.00-0.50) K/uL Baso # (Auto) 0.03 (0.00-0.20) K/uL Immature Gran # (Auto) 0.07 (0.01-0.20) K/uL PT 11.0 (9.0-12.0) Seconds INR 1.0 (0.9-1.1) Sodium 136 (136-145) mmol/L Potassium 3.8 (3.5-5.1) mmol/L Chloride 100 (98-107) mmol/L Carbon Dioxide 27 (21-32) mmol/L Anion Gap 9 (3-11) BUN 16 (6-23) mg/dl Creatinine 0.75 (0.6-1.2) mg/dl Est Cr Clr Drug Dosing 102.3 ml/min eGFR 91.09 BUN/Creatinine Ratio 21.3 H (10-20) Glucose 159 H (70-99(Fasting)) mg/dl Lactate 1.8 (0.4-2.0) mmol/L Calcium 9.4 (8.6-10.3) mg/dl Magnesium 1.4 L (1.7-2.4) mg/dl Total Bilirubin 0.7 (0.2-1.0) mg/dl AST 28 (13-39) U/L ALT 26 (7-52) U/L Alkaline Phosphatase 83 (34-104) U/L Troponin I High Sens 6.8 (0-14) pg/ml Total Protein 7.6 (6.0-8.3) gm/dl Albumin 3.9 (3.4-5.0) gm/dl Globulin 3.7 (2.5-4.0) gm/dl Albumin/Globulin Ratio 1.1 (0.9-2) Lipase 14 (11-82) U/L Procalcitonin 0.44 (0-0.5) ng/ml Random Cortisol 19.01 mcg/dl Urine Color Dark Yellow Urine Appearance Cloudy A (Clear) Urine pH 5.5 (4.5-7.5) Ur Specific [place] 1.025 (1.000-1.030) Urine Protein 2+ H (Negative) Urine Glucose (UA) 1+ H (Negative) Urine Ketones Negative (Negative) Urine Blood 3+ H (Negative) Urine Nitrite Negative (Negative) Urine Bilirubin Negative (Negative) Urine Urobilinogen Negative (Negative) Ur Leukocyte Esterase Negative (Negative) Urine RBC >20 H (0-2) /hpf Urine WBC >50 H (0-5) /hpf Ur Epithelial Cells 0-2 (0-2) /hpf Urine Bacteria 3+ H (None Seen) Adenovirus (PCR) Not Detected (NotDetected) B. pertussis DNA (PCR) Not Detected (NotDetected) B.parapertussis DNA PCR Not Detected (NotDetected) Lyme Disease Screen Negative (Negative) C. pneumoniae DNA (PCR) Not Detected (NotDetected) Coronavirus OC43 (PCR) Not Detected (NotDetected) Coronavirus HKU1 (PCR) Not Detected (NotDetected) Coronavirus 229E (PCR) Not Detected (NotDetected) SARS-CoV-2 (PCR) Not Detected (NotDetected) Coronavirus NL63 (PCR) Not Detected (NotDetected) Enterobacterales (PCR) DETECTED A (NotDetected) E. coli (PCR) DETECTED A (NotDetected) Human Metapneumovir PCR Not Detected (NotDetected) Influenza Type A (PCR) Not Detected (NotDetected) Influenza Type B (PCR) Not Detected (NotDetected) M. pneumoniae (PCR) Not Detected (NotDetected) Parainfluenza 1 (PCR) Not Detected (NotDetected) Parainfluenza 2 (PCR) Not Detected (NotDetected) Parainfluenza 3 (PCR) Not Detected (NotDetected) Parainfluenza 4 (PCR) Not Detected (NotDetected) RSV (PCR) Not Detected (NotDetected) Entero/Rhino (PCR) Not Detected (NotDetected) mcr-1 Colistin Res Gene PCR Not Detected (NotDetected) blaIMP Car res Gene PCR Not Detected (NotDetected) KPC-Carbap Res Gene PCR Not Detected (NotDetected) blaNDM Car Res Gene PCR Not Detected (NotDetected) OXA-48 Carbapenem Resis Gene (PCR) Not Detected (NotDetected) blaVIM Car Res Gene PCR Not Detected (NotDetected) CTX-M Gene Resistance (PCR) Not Detected (NotDetected) Bld Cult ID Panel PCR See PCR Comment (NotDetected) Administered Medications Acetaminophen (Acetaminophen 500 Mg Tab) 500 mg PO Q4H PRN PRN Reason: Fever or headache Stop: 02/24/24 07:45 Last Admin: 01/26/24 04:25 Dose: 500 mg Documented By: Admin: 01/25/24 19:13 Dose: 500 mg Documented By: Admin: 01/25/24 12:38 Dose: 500 mg Documented By: MEJIA Atorvastatin Calcium (Atorvastatin 20 Mg Tab) 20 mg PO [facility] Stop: 02/24/24 08:59 Last Admin: 01/26/24 09:45 Dose: 20 mg Documented By: Admin: 01/25/24 08:27 Dose: 20 mg Documented By: WS Duloxetine HCl (Duloxetine Hcl 60 Mg Cap) 60 mg PO [facility] Stop: 02/24/24 08:59 Last Admin: 01/26/24 09:45 Dose: 60 mg Documented By: Admin: 01/25/24 08:27 Dose: 60 mg Documented By: MEJIA Enoxaparin Sodium (Enoxaparin Inj 40 Mg/0.4 Ml Syr) 40 mg SQ Q24H [facility] Stop: 02/24/24 08:59 Last Admin: 01/26/24 09:44 Dose: 40 mg Documented By: Admin: 01/25/24 07:42 Dose: 40 mg Documented By: MEJIA Famotidine (Famotidine 40 Mg Tablet) 40 mg PO [facility] Stop: 02/24/24 08:59 Last Admin: 01/26/24 09:45 Dose: 40 mg Documented By: Admin: 01/25/24 08:27 Dose: 40 mg Documented By: MEJIA Ceftriaxone Sodium (Rocephin) 2,000 mg in 50 mls @ 100 mls/hr IV Q24H [facility] Stop: 02/04/24 12:59 Last Infusion: 01/25/24 13:33 Dose: Infused Documented By: Admin: 01/25/24 12:37 Dose: 100 mls/hr Documented By: MEJIA Insulin Aspart (Insulin Aspart Per Unit Charge) 0 units SC [facility] Stop: 02/23/24 22:14 Last Admin: 01/25/24 20:23 Dose: Not Given Documented By: Admin: 01/25/24 19:12 Dose: 4 units Documented By: GAYATRI Co-signed By: YOSELIN Admin: 01/25/24 12:06 Dose: 6 units Documented By: MEJIA Co-signed By: SHARI Admin: 01/25/24 08:28 Dose: 5 units Documented By: MEJIA Co-signed By: ALEKSANDR(2) Admin: 01/24/24 23:03 Dose: 1 units Documented By: [id number] Co-signed By: LUIS Levothyroxine Sodium (Levothyroxine Sodium 25 Mcg Tablet) 25 mcg PO DAILYBB [facility] Stop: 02/24/24 06:29 Last Admin: 01/26/24 04:23 Dose: 25 mcg Documented By: Admin: 01/25/24 05:32 Dose: 25 mcg Documented By: [id number] Melatonin (Melatonin 3 Mg Tab) 3 mg PO HS PRN PRN Reason: Sleep Stop: 02/25/24 01:19 Last Admin: 01/26/24 01:26 Dose: 3 mg Documented By: YOSELIN Multivitamins (Multivitamin Tab) [facility] Protocol Stop: 02/24/24 08:59 Last Admin: 01/26/24 09:45 Dose: 1 tab Documented By: Admin: 01/25/24 09:21 Dose: 1 tab Documented By: MEJIA Tamsulosin HCl (Tamsulosin Hcl 0.4 Mg Cap) [facility] Stop: 02/24/24 08:59 Last Admin: 01/26/24 09:45 Dose: 0.4 mg Documented By: Admin: 01/25/24 08:27 Dose: 0.4 mg Documented By: MEJIA Discontinued Medications Albuterol (Albut/Ipratrop 3mg/0.5mg Neb 3 Ml Vial) 3 ml NEB NOW STA; Protocol Stop: 01/26/24 01:22 Last Admin: 01/26/24 02:01 Dose: 3 ml Documented By: CRISELDA Hydrocortisone Sodium Succinate (Hydrocortisone Sod Succinate 100 Mg/2 Ml Vial) 100 mg IV NOW STA Stop: 01/24/24 19:22 Last Admin: 01/24/24 19:30 Dose: 100 mg Documented By: BENJAMIN Acetaminophen (Ofirmev) 1,000 mg in 100 mls @ 400 mls/hr IV NOW STA Stop: 01/24/24 11:08 Last Infusion: 01/24/24 11:44 Dose: Infused Documented By: Admin: 01/24/24 11:29 Dose: 400 mls/hr Documented By: VERENICE Sodium Chloride (Nss) 1,000 mls @ 999 mls/hr IV .Q1H1M ONE Stop: 01/24/24 11:54 Last Infusion: 01/24/24 12:30 Dose: Infused Documented By: Admin: 01/24/24 11:29 Dose: 999 mls/hr Documented By: VERENICE Sodium Chloride (Nss) 1,000 mls @ 999 mls/hr IV .Q1H1M ONE Stop: 01/24/24 13:20 Last Infusion: 01/24/24 15:23 Dose: Infused Documented By: Admin: 01/24/24 13:03 Dose: 999 mls/hr Documented By: DELFIN Ceftriaxone Sodium (Rocephin) 2,000 mg in 50 mls @ 100 mls/hr IV NOW STA Stop: 01/24/24 13:02 Last Infusion: 01/24/24 13:33 Dose: Infused Documented By: Admin: 01/24/24 13:03 Dose: 100 mls/hr Documented By: DELFIN Sodium Chloride (Nss) 1,000 mls @ 999 mls/hr IV .Q1H1M ONE Stop: 01/24/24 16:14 Last Infusion: 01/24/24 16:37 Dose: Infused Documented By: Admin: 01/24/24 15:34 Dose: 999 mls/hr Documented By: BENJAMIN Parenteral Electrolytes (Plasma-Lyte A Ph 7.4) 500 mls @ 999 mls/hr IV .Q31M ONE Stop: 01/24/24 16:56 Last Infusion: 01/24/24 17:35 Dose: Infused Documented By: Admin: 01/24/24 16:35 Dose: 999 mls/hr Documented By: BENJAMIN Magnesium Sulfate/Dextrose (Magnesium Sulfate / D5w) 1 gm in 100 mls @ 100 mls/hr IV Q1H [place] Stop: 01/24/24 19:00 Last Infusion: 01/24/24 19:27 Dose: Infused Documented By: Admin: 01/24/24 18:23 Dose: 100 mls/hr Documented By: Infusion: 01/24/24 18:16 Dose: Infused Documented By: Admin: 01/24/24 17:16 Dose: 100 mls/hr Documented By: BENJAMIN Parenteral Electrolytes (Plasma-Lyte A Ph 7.4) 500 mls @ 999 mls/hr IV .Q31M ONE Stop: 01/24/24 17:42 Last Infusion: 01/24/24 18:13 Dose: Infused Documented By: Admin: 01/24/24 17:29 Dose: 999 mls/hr Documented By: BENJAMIN Norepinephrine Bitartrate (Levophed/D5w) 4 mg in 250 mls @ 13.613 mls/hr IV .[id number] [place]; Protocol Stop: 02/23/24 17:14 Last Titration: 01/25/24 07:56 Dose: Infused Documented By: WS Co-signed By: KJL Titration: 01/25/24 05:40 Dose: 0 mcg/kg/min, 0 mls/hr Documented By: [id number] Co-signed By: CLC Titration: 01/25/24 03:39 Dose: 0.02 mcg/kg/min, 9.1 mls/hr Documented By: [id number] Co-signed By: CLC Titration: 01/24/24 22:15 Dose: 0.03 mcg/kg/min, 13.6 mls/hr Documented By: [id number] Co-signed By: CP Titration: 01/24/24 21:38 Dose: 0.05 mcg/kg/min, 22.7 mls/hr Documented By: [id number] Co-signed By: MNM Titration: 01/24/24 20:54 Dose: 0.07 mcg/kg/min, 31.8 mls/hr Documented By: BENJAMIN Co-signed By: BEATRICE Titration: 01/24/24 19:21 Dose: 0.09 mcg/kg/min, 40.8 mls/hr Documented By: BENJAMIN Co-signed By: NAW Titration: 01/24/24 17:57 Dose: 0.07 mcg/kg/min, 31.8 mls/hr Documented By: BENJAMIN Co-signed By: BEATRICE Admin: 01/24/24 17:31 Dose: 0.05 mcg/kg/min, 22.7 mls/hr Documented By: BENJAMIN Co-signed By: MELANY Hydrocortisone Sodium (Succinate 50 mg/ Syringe) 1 mls @ 4 mls/min IV Q6H [place] Stop: 02/24/24 00:59 Last Admin: 01/25/24 06:07 Dose: 4 mls/min Documented By: [id number] Admin: 01/25/24 02:00 Dose: 4 mls/min Documented By: [id number] Parenteral Electrolytes (Plasma-Lyte A Ph 7.4) 1,000 mls @ 125 mls/hr IV .Q8H [place] Stop: 01/25/24 22:59 Last Infusion: 01/25/24 07:56 Dose: Infused Documented By: Admin: 01/25/24 07:40 Dose: 125 mls/hr Documented By: Infusion: 01/25/24 07:04 Dose: Infused Documented By: Admin: 01/24/24 23:04 Dose: 125 mls/hr Documented By: [id number] Ioversol (Optiray 320 100ml) 94 ml IV ONCE ONE Stop: 01/24/24 12:43 Last Admin: 01/24/24 12:42 Dose: 94 ml Documented By: SEJ Ketorolac Tromethamine (Ketorolac Tromethamine 15 Mg/Ml Vial) 10 mg IV NOW ONE Stop: 01/24/24 15:38 Last Admin: 01/24/24 15:57 Dose: 10 mg Documented By: BENJAMIN Min (Stat Iv Infusion Titration Per Protocol) 1 each N/A NOW STA Stop: 01/24/24 17:14 Last Admin: 01/24/24 17:35 Dose: 1 each Documented By: BENJAMIN Min (Icu Protocol For Hyperglycemia) 1 each N/A ACHS [place] Stop: 01/26/24 21:35 Last Admin: 01/25/24 07:42 Dose: 1 each Documented By: Admin: 01/24/24 22:46 Dose: 1 each Documented By: [id number] Pantoprazole Sodium (Pantoprazole 40 Mg Tab) 40 mg PO HS [place] Stop: 02/23/24 21:35 Last Admin: 01/24/24 23:04 Dose: 40 mg Documented By: [id number] Imaging Data Radiologist's Impression: Chest X-Ray 01/24/24 10:54 XR chest 1V portable CLINICAL HISTORY: Fever TECHNIQUE: Single frontal radiograph of the chest was obtained. Comparison: Comparison is made to chest radiograph 11/06/2023 FINDINGS: Exam is limited by underpenetration. The cardiomediastinal silhouette is normal. The lungs are clear. No evidence of pleural effusion or pneumothorax. IMPRESSION: No acute abnormalities and in particular no radiographic evidence of pneumonia. ACT 112: Negative or not required by law. Electronically signed by: Salvador Biggs M.D. 01/24/2024 11:20 AM Abdomen/Pelvis CT 01/24/24 12:[address] WITH IV CONTRAST CT DOSE: 1451.1 mGy.cm HISTORY: Acute left-sided flank pain left flank pain, fever, recent stent TECHNIQUE: Multiaxial CT images of the abdomen and pelvis were performed following the IV administration of 94 cc of Optiray, A dose lowering technique was utilized adhering to the principles of ALARA. COMPARISON STUDY: 11/06/2023 FINDINGS: Mild cardiomegaly. Clear lung bases. No pneumatosis or pneumoperitoneum. Unremarkable spleen, pancreas and adrenal glands. Cholecystectomy. Hepatomegaly with hepatic steatosis. Patency of the hepatic and portal veins. Unremarkable right kidney. There is mild left-sided hydroureteronephrosis. Scarring of the superior pole left kidney with increased size of the ill-defined hypodense lesion measuring 1.9 cm, previously 1.1 cm. There is still thickening of the left renal collecting system and left ureter. No obstructing stone or lesion. A 3 mm stone is present within the inferior pole left kidney at the site of the previously noted 7 mm calculus. Stable 5.2 cm tubular cystic structure within the pelvis. Hysterectomy. Unremarkable urinary bladder containing a punctate focus of air. No lymphadenopathy. Colonic diverticulosis. No bowel obstruction or bowel wall thickening. Diastases recti with anterior abdominal wall herniorrhaphy changes. Normal appendix. Fat filled umbilical hernia with diastases of 2 cm. IMPRESSION: 1. Mild left-sided hydroureteronephrosis with associated urothelial thickening suggestive of an ascending infection. Correlate with urinalysis. 2. 3 mm left renal calculus. No ureteral calculi identified. 3. Mild cortical scarring of the superior pole left kidney redemonstrated. There is a 1.9 cm hypodense focus within the superior pole at the location of a previously noted low suspicion 1.1 cm lesion. This may represent increased size of a calyceal diverticulum or cyst. A developing renal abscess considered less likely. One-month follow-up renal ultrasound recommended. 4. Unchanged low suspicion 5.2 cm tubular cyst of the pelvis. ACT 112: Negative or not required by law. The above report was generated using voice recognition software. It may contain grammatical, syntax or spelling errors. Electronically signed by: Stanislav Romero M.D. 01/24/2024 2:12 PM Discharge Plan Visit Data Chief Complaint: Fever Stated Complaint: FEVER, SHIVER ED Provider: Kim Rangel Discharge Problem: Fever, UTI (urinary tract infection), Hypomagnesemia, Hypotension Patient Disposition: Admitted As Inpatient Discharge Instructions Interventions: ED Discharge Assessment Last Done: 01/24/24 21:02
--- NOTE | 2024-01-24 11:21 | XRay Report ---
XR chest 1V portable CLINICAL HISTORY: Fever TECHNIQUE: Single frontal radiograph of the chest was obtained. Comparison: Comparison is made to chest radiograph 11/06/2023 FINDINGS: Exam is limited by underpenetration. The cardiomediastinal silhouette is normal. The lungs are clear. No evidence of pleural effusion or pneumothorax. IMPRESSION: No acute abnormalities and in particular no radiographic evidence of pneumonia. ACT 112: Negative or not required by law. Electronically signed by: Salvador Biggs M.D. 01/24/2024 11:20 AM
[2024-01-24] MEDS: ACETAMINOPHEN 1,000 MG/100 ML VIAL IV STA (11:29)
[2024-01-24] MEDS: SODIUM CHLORIDE 0.9% 1,000 ML IV ONE ×3 (11:29→15:34)
[2024-01-24 11:44] LABS: Appearance Urine Cloudy (Clear); Bilirubin Urine Negative (Negative); Blood Urine 3+ (Negative); Glucose Urine UA 1+ (Negative); Ketones Urine Negative (Negative); Leukocyte Esterase Urine Negative (Negative); Nitrite Urine Negative (Negative); Protein Urine 2+ (Negative); Specific Gravity Urine 1.025 (1.000-1.030); Urobilinogen Urine Negative (Negative); pH Urine 5.5 (4.5-7.5)
[2024-01-24 11:45] LABS: Color Urine Dark Yellow
[2024-01-24 11:47] LABS: Hematocrit (blood only) 35.5 % (37.0-47.0); Mean Corpuscular Hemoglobin 29.7 pg (25.0-34.0); Mean Corpuscular Hgb Conc 33.8 g/dL (32.0-36.0); Mean Corpuscular Volume 87.9 fL (80.0-100.0); Mean Platelet Volume 10.1 fL (9.4-12.4); Platelet Count 244 K/uL (130-400); RDW Coefficient of Variation 12.5 % (11.5-14.5); RDW Standard Deviation 40.3 fL (36.4-46.3); Red Blood Count 4.04 M/uL (4.20-5.40); White Blood Count 12.53 K/ul (4.8-10.8)
[2024-01-24 11:47] LABS: Epithelial Cell Urine 0-2 /hpf (0-2)
[2024-01-24 11:48] LABS: RBC Urine >20 /hpf (0-2)
[2024-01-24 11:49] LABS: Bacteria Urine 3+ (None Seen); WBC Urine >50 /hpf (0-5)
[2024-01-24 12:04] LABS: Adenovirus PCR Not Detected (NotDetected); Bordetella parapertussis PCR Not Detected (NotDetected); Bordetella pertussis PCR Not Detected (NotDetected); Chlamydia pneumoniae PCR Not Detected (NotDetected); Coronavirus 229E PCR Not Detected (NotDetected); Coronavirus CoV-2 (COVID19)PCR Not Detected (NotDetected); Coronavirus HKU1 PCR Not Detected (NotDetected); Coronavirus NL63 PCR Not Detected (NotDetected); Coronavirus OC43PCR Not Detected (NotDetected); Human Metapneumovirus PCR Not Detected (NotDetected); Influenza A PCR Not Detected (NotDetected); Influenza B PCR Not Detected (NotDetected); Mycoplasma pneumoniae PCR Not Detected (NotDetected); Parainfluenza Virus 1 PCR Not Detected (NotDetected); Parainfluenza Virus 2 PCR Not Detected (NotDetected); Parainfluenza Virus 3 PCR Not Detected (NotDetected); Parainfluenza Virus 4 PCR Not Detected (NotDetected); Respiratory Syncytial VirusPCR Not Detected (NotDetected); Rhinovirus/Enterovirus PCR Not Detected (NotDetected)
[2024-01-24 12:05] LABS: Albumin Globulin Ratio 1.1 (0.9-2); Albumin Level 3.9 gm/dl (3.4-5.0); BUN Creatinine Ratio 21.3 (10-20); Bilirubin,Total 0.7 mg/dl (0.2-1.0); Calcium 9.4 mg/dl (8.6-10.3); Creatinine Clr Calc Pharmacy 102.3 ml/min; Globulin 3.7 gm/dl (2.5-4.0); Potassium 3.8 mmol/L (3.5-5.1); Total Protein 7.6 gm/dl (6.0-8.3)
[2024-01-24 12:11] LABS: Troponin I High Sensitivity 6.8 pg/ml (0-14)
[2024-01-24 12:16] LABS: Procalcitonin 0.44 ng/ml (0-0.5)
[2024-01-24 12:23] LABS: Basophils # (auto) 0.03 K/uL (0.00-0.20); Basophils % (auto) 0.2 %; Eosinophils # (auto) 0.17 K/uL (0.00-0.50); Eosinophils % (auto) 1.4 %; Immature Granulocytes # (auto) 0.07 K/uL (0.01-0.20); Immature Granulocytes % (auto) 0.6 %; Lymphocytes # (auto) 0.41 K/uL (1.20-3.40); Lymphocytes % (auto) 3.3 %; Monocytes # (auto) 0.11 K/uL (0.11-0.59); Monocytes % (auto) 0.9 %; Neutrophils # (auto) 11.74 K/uL (1.40-6.50); Neutrophils % (auto) 93.6 %
[2024-01-24 12:41] LABS: Lyme Screen Rflx Confirmation Negative (Negative)
[2024-01-24] MEDS: OPTIRAY 320 100ml IV ONE (12:42)
[2024-01-24] MEDS: cefTRIAXone SODIUM 2,000 MG/50 ML BAG IV STA (13:03)
--- NOTE | 2024-01-24 14:14 | CT Scan Report ---
ABDOMEN AND PELVIS CT WITH IV CONTRAST CT DOSE: 1451.1 mGy.cm HISTORY: Acute left-sided flank pain left flank pain, fever, recent stent TECHNIQUE: Multiaxial CT images of the abdomen and pelvis were performed following the IV administrat ion of 94 cc of Optiray, A dose lowering technique was utilized adhering to the principles of ALARA. COMPARISON STUDY: 11/06/2023 FINDINGS: Mild cardiomegaly. Clear lung bases. No pneumatosis or pneumoperitoneum. Unremarkable splee n, pancreas and adrenal glands. Cholecystectomy. Hepatomegaly with hepatic steatosis. Patency of the hepatic and portal veins. Unremarkable right kidney. There is mild left-sided hydroureteronephrosis. Scarring of the superior p ole left kidney with increased size of the ill-defined hypodense lesion measuring 1.9 cm, previously 1.1 cm. There is still thickening of the left renal collecting system and left ureter. No obstructing stone or lesion. A 3 mm stone is present within the inferior pole left kidney at the site of the pre viously noted 7 mm calculus. Stable 5.2 cm tubular cystic structure within the pelvis. Hysterectomy. Unremarkable urinary bladder containing a punctate focus of air. No lymphadenopathy. Colonic diverticulosis. No bowel obstruction or bowel wall thickening. Diastases recti with anterior abdominal wall herniorrhaphy changes. Normal appendix. Fat filled umbilical herni a with diastases of 2 cm. IMPRESSION: 1. Mild left-sided hydroureteronephrosis with associated urothelial thickening suggestive of an ascen ding infection. Correlate with urinalysis. 2. 3 mm left renal calculus. No ureteral calculi identified. 3. Mild cortical scarring of the superior pole left kidney redemonstrated. There is a 1.9 cm hypodens e focus within the superior pole at the location of a previously noted low suspicion 1.1 cm lesion. T his may represent increased size of a calyceal diverticulum or cyst. A developing renal abscess consi dered less likely. One-month follow-up renal ultrasound recommended. 4. Unchanged low suspicion 5.2 cm tubular cyst of the pelvis. ACT 112: Negative or not required by law. The above report was generated using voice recognition software. It may contain grammatical, syntax o r spelling errors. Electronically signed by: Stanislav Romero M.D. 01/24/2024 2:12 PM
[2024-01-24] MEDS: KETOROLAC TROMETHAMINE 15 MG/ML VIAL IV ONE (15:57)
--- NOTE | 2024-01-24 16:07 | History & Physical Report ---
Date of Service January 24, 2024 Assessment & Plan (1) Sepsis: Plan: Sepsis due to complicated UTI, recent stent removal Patient did recently have cystoscopy and laser lithotripsy and stent placement with urology 01/11/2024. Stent was removed 01/23/2024 at office follow-up (1 day prior to admission) suspect complicated UTI likely exacerbated by stent manipulation Leukocytosis of 12.5 Troponin, lactate are normal. Procalcitonin upper limit of normal UA infected appearing, UCx pending BioFire is negative No history of resistant infections History of resistant infections. Rocephin continued. Blood cultures are pending Patient has been ordered 3 L NSS crystalloid resuscitation. Approximately 2400 of this has been completed at time of consultation. IBW 30 cc/kg recommendation of 1636 cc, and is near her AB W recommendations of 3630 cc. Ta chycardia improved, however blood pressure remains with MAP less than 60. 1 additional liter of Plasma-Lyte is ordered, will run 500 at maintenance in addition to completing her ordered 3 L. Pressure was checked on both arms and is hypotensive on both. Admission order held will be further resuscitated in the ER until vasopressor requirements or lack thereof is clear. No history of chronic steroid use. Random cortisol ordered as patient is to be hypotensive despite 3500 cc of resuscitation on reassessment following completion of 4 L crystalloid patient remained hypotensive, levo uptitrated improvement in MAP and BP improved to 111/59 after dose titration up to 0.07 mcg/kg/min. Patient denies any history of heart failure. Last EF on stress echo 07/2021 was with EF 60% and no significant valvular pathology. Random cortisol is not suppressed (2) Complicated UTI (urinary tract infection): Plan: As noted (3) Hypothyroidism: Plan: Hypothyroidism Continue Synthroid (4) Hypertension: Plan: Carvedilol held for hypotension. Resume as soon as able to prevent withdrawal Hydrochlorothiazide, olmesartan held for hypotension (5) Diabetes mellitus, type 2: Plan: ICU hyperglycemia protocol while admitted, below BSG 1 101 (6) Sleep apnea: Plan: CPAP nightly Plan DVT prophylaxis: Lovenox Disposition: ICU due to vasopressor requirements CODE STATUS: Full code Diet: DM2 History of Present Illness Primary Care Provider: DO Nemesio Horne is a 58-year-old female past medical history of hyperlipidemia, hypertension, hypothyroidism, RASHIDA on CPAP, venous insufficiency improved post ablation 2021 who presents with suspected sepsis of urinary source. In the ER she is hypotensive, tachycardic, with a leukocytosis of 12.5, normal troponin, normal lactate, and upper limit of normal procalcitonin. UA is infected appearing, BioFire is negative. CTA/P: Left-sided hydroureteronephrosis with urothelial thickening suggestive of ascending infection/complicated UTI.Is recommended for admission for sepsis due to complicated UTI. Nemesio is seen at the bedside. She reports that he is feeling generally well following her lithotripsy and stent placement however the evening after having her stent taken out yesterday she started to feel unwell, feverish and chilly. She has had worsening shaking chills nausea and some low suprapubic tenderness with dysuria and polyuria today. She has not felt lightheaded or dizzy. No chest pain or chest pressure. No nausea/vomiting. No shortness of breath. Medical History: Reviewed Medications: Reviewed Surgical History: Reviewed Family history: Reviewed Allergies: Reviewed Social History: No tobacco/alcohol use Code Status: Full code Allergies Allergy/AdvReac Type Severity Reaction Status Date / Time No Known Allergies Allergy Verified 01/11/24 07:16 Home Medications Medication Instructions Recorded Confirmed Type calcium 500 mg (as 1 tab PO HS 05/31/18 01/24/24 History carbonate)-vitamin D3 3.125 mcg (125 unit) tablet (Calcium) lactobacillus combination no.4 3 3,000 mmu cells PO QAM 05/31/18 01/24/24 History billion cell capsule (Probiotic) multivitamin 2 cap PO QAM 05/31/18 01/24/24 History turmeric 400 mg capsule 400 mg PO QAM 05/31/18 01/24/24 History cephalexin 500 mg capsule (Keflex) 500 mg PO ONCE #4 caps 02/20/19 01/24/24 Rx duloxetine 60 mg capsule,delayed 60 mg PO QAM 03/01/21 01/24/24 History release CPAP Supplies #1 ea 11/10/22 11/01/23 Rx gabapentin 300 mg capsule 600 mg (2 x 300 mg) PO HS #180 caps 02/17/23 01/24/24 Rx triamcinolone acetonide 0.5 % 1 applic topical DAILY PRN rash 06/05/23 01/24/24 Rx topical cream #15 grams pantoprazole 40 mg tablet,delayed 40 mg PO HS #90 tabs 08/01/23 01/24/24 Rx release carvedilol 25 mg tablet 25 mg PO BID #180 tabs 08/24/23 01/24/24 Rx dulaglutide 1.5 mg/0.5 mL 1.5 mg (0.5 mL) subcut .weekly #2 10/16/23 01/24/24 Rx subcutaneous pen injector mL allopurinol 100 mg tablet 100 mg PO HS #90 tabs 10/25/23 01/24/24 Rx hydrochlorothiazide 25 mg tablet 25 mg PO UD 10/27/23 01/24/24 History olmesartan 40 mg tablet 40 mg PO HS #90 tabs 11/01/23 01/24/24 Rx meloxicam 7.5 mg tablet 7.5 mg PO QAM 11/10/23 01/24/24 History atorvastatin 20 mg tablet 20 mg PO QAM 01/02/24 01/24/24 History famotidine 40 mg tablet (Pepcid) 40 mg PO QAM 01/02/24 01/24/24 History levothyroxine 25 mcg tablet 25 mcg PO QAM 01/02/24 01/24/24 History phenazopyridine 200 mg tablet 200 mg PO Q8H PRN pain #10 tabs 01/11/24 01/24/24 Rx (Pyridium) tamsulosin 0.4 mg capsule 0.4 mg PO QAM 01/24/24 01/24/24 History Past Med/Surg History Problem List (Updated 01/24/24 @ 17:18 by Kim Rangel, DO) Hypomagnesemia (Acute) UTI (urinary tract infection) (Acute) Complicated UTI (urinary tract infection) Sepsis Fever (Acute) Encounter for preoperative assessment (Acute) Lumbar spondylosis Trochanteric bursitis, left hip Trochanteric bursitis, right hip Medical History Arthritis Chronic venous insufficiency Per records Diabetes mellitus, type 2 Reported hx prediabetes Diabetes hx listed per records. Most recent HgbA1C 6.9% 10/13/23 Heartburn Hyperlipidemia Hypertension Hypothyroidism Kidney stones Morbid obesity Sleep apnea CPAP Venous stasis dermatitis of both lower extremities Per records Surgical History H/O bilateral salpingo-oophorectomy History of cholecystectomy History of colonoscopy History of dilatation and curettage History of esophagogastroduodenoscopy (EGD) History of herniorrhaphy ventral History of partial hysterectomy Hx of LASIK Status post left partial knee replacement (06/2018) Status post left partial knee replacement Buck[place] teeth removed Family History Father Hypertension Prostate cancer Stroke Brother Prostate cancer Mother Hypertension Depression Kidney disease on HD Family/Other Breast cancer great grandmother Denies family history of Ovarian cancer Myocardial infarction Colorectal cancer Social History Smoking Status: Never smoker Second Hand Exposure: No; Do You Dip or Chew Tobacco: No; Hx Alcohol Use: No Hx Substance Use: No Preferred Language: Thai Communication Ability: Effective Visual Impairment: No Limitations Hearing Ability: Normal Personal Vehicle Advisor Required: No Beliefs That Will Affect Care: None marital status: Current Living Situation: Spouse current occupational status: employed current occupation: paraprofessional/teacher's aid How many Children do You have: 3 Feels Safe at Home: Yes Diet: regular Diet Comment: regular caffeine: No during the past year weight has: remained stable Dental Care, Regularly: Yes Physical Activity Frequency: Daily Seatbelt Use: always Assistive Devices: CPAP Physical Exam Physical Exam: General: A&Ox3. NAD. Cooperative. HEENT: Atraumatic, normocephalic. Vision and hearing grossly intact Pulm: CTAB A&P. -wheezes, -rales, -rhonchi. Symmetrical chest rise. No increased work of breathing. No respiratory distress. Cardiac: Tachycardic, -mrg. Radial pulses intact and symmetrical. Abdominal: Abdomen is soft, without rebound/guarding/tenderness Results & Data Results & Data Vital Signs (Past 12 Hours) Vital Signs Temp Pulse Pulse Resp BP BP Pulse Ox 01/24/24 15:52 97 H 01/24/24 15:47 95 H 20 86/53 L 94 01/24/24 15:05 97 H 20 71/42 L 91 01/24/24 14:33 93 H 18 101/54 L 92 01/24/24 14:04 99 H 24 94/45 L 93 01/24/24 13:49 37.3 C 01/24/24 13:49 37.3 C 01/24/24 13:33 99 H 20 92 01/24/24 13:00 102 H 21 94 01/24/24 13:00 110/69 01/24/24 12:08 38.4 C H 109 H 28 H 110/69 96 01/24/24 11:27 109 H 01/24/24 10:38 38.1 C H 106 H 20 157/79 H 93 O2 Del Method 01/24/24 15:52 01/24/24 15:47 Room Air 01/24/24 15:05 Room Air 01/24/24 14:33 Room Air 01/24/24 14:04 Room Air 01/24/24 13:49 01/24/24 13:49 01/24/24 13:33 01/24/24 13:00 01/24/24 13:00 01/24/24 12:08 Room Air 01/24/24 11:27 01/24/24 10:38 Room Air PG Care Time/CCT Total # of Minutes Spent Total Time Spent with Patient: Total time spent is greater than 50% in coordination of care (as documented) at patient's floor/unit and/or counseling patient: Coding Level of Care Code 84497 INT INP/OBS CARE 3/75MIN Diagnoses Sepsis A41.9 Complicated UTI (urinary tract infection) N39.0 Hypothyroidism E03.9 Hypertension I10 Diabetes mellitus, type 2 E11.9 Sleep apnea G47.30
[2024-01-24] MEDS: PLASMA-LYTE A 500 ML IV ONE ×2 (16:35→17:29)
[2024-01-24 16:58] LABS: Magnesium 1.4 mg/dl (1.7-2.4)
[2024-01-24] MEDS: MAGNESIUM SULFATE / D5W 1 GM/100 ML BAG IV SCH (17:16)
[2024-01-24] MEDS: NOREPINEPHRINE/D5W 4 MG/250 ML PLCT IV SCH (17:31)
[2024-01-24] MEDS: STAT IV Infusion **Titration per Protocol STA (17:35)
[2024-01-24] MEDS: HYDROCORTISONE SOD SUCCINATE 100 MG/2 ML VIAL IV STA (19:30)
[2024-01-24] MEDS ORDERED: ICU Protocol for HYPERglycemia SCH (21:00)
[2024-01-24] MEDS ORDERED: GLUCOSE 40% GEL 15 GM TUBE PO PRN (21:59)
[2024-01-24] MEDS ORDERED: GLUCOSE 10 TAB/TUBE PO PRN (21:59)
[2024-01-24] MEDS ORDERED: GLUCAGON FOR INJ 1 MG VIAL SQ PRN (21:59)
[2024-01-24] MEDS ORDERED: CARBOHYDRATES FOR HYPOGLYCEMIA PO PRN (21:59)
[2024-01-24] MEDS ORDERED: DEXTROSE 50% 50 ML SYRINGE IV PRN (21:59)
[2024-01-24] MEDS ORDERED: Nursing to Pharmacy Communication SCH (22:15)
--- NOTE | 2024-01-24 22:33 | Critical Care Consultation ---
Date of Consultation January 24, 2024 Assessment & Plan (1) Septic shock: Reason Critically Ill: 58-year-old female with past medical history of HTN, HLD, hypothyroidism, GERD and recent urology procedure for stone extraction 1 week ago and stent removal yesterday, Now presents to the ICU hypotensive on vasopressor support likely due to septic shock from complicated UTI. Neuro - [facility] ICU: Negative Cardiac - Shocksuspect this is most likely septic. No history of heart failure. Received 30 cc per cake fluid resuscitation initially in the emergency department. Currently on Levophed to maintain MAP of 65 -Patient did have borderline cortisol level at 19 and was started on hydrocortisone as well. -See ID for treatment infectious process - Hold antihypertensives - Titrate drip to maintain MAP greater than 65. Currently on low-dose Levophed and will hopefully be able to wean off. Will hold on CVC for now but consider if patient has increased vasopressor requirement or decompensation - Admitted to ICU. Continuous monitoring telemetry Respiratory - OSApatient reports wearing CPAP at night but does not have home CPAP. She refused CPAP for tonight, however she is currently maintaining oxygen saturations on room air without difficulty. Will monitor continuously on pulse ox. GI - Advance diet as tolerated GERDPPI RENAL/LYTES - Creatinine within normal limits, monitor routine BMPs and replete electrolytes as indicated. Continue with fluid resuscitation to maintain euvolemia. Maintain MAP greater than 65. - Strict I's and O's Endo Hypothyroidismcontinue Synthroid History of prediabetescurrently euglycemic. Continue with sliding scale and ICU hyperglycemic protocol. HEME - H&H stable, monitor routine CBC ID - Sepsislikely due to complicated UTI. Urinalysis consistent with urinary tract infection. - Leukocytosis with WBC 12.5, borderline procalcitonin. Lactate within normal limits. - Recent urine culture 12/28 Streptococcus anginosus - Urine culture and blood cultures pending -Continue ceftriaxone LINES/IV ACCESS - Peripheral IVs, Consider central line access if patient's vasopressor requirements increase DVT PROPHYLAXIS - SCDs I have personally spent 42 minutes of critical care time in the direct management of this patient. This is a life/limb threatening event. This includes time spent evaluating patient, direct bedside care, chart review, placing orders, interpretation of diagnostic studies, discussion with consultants, patient, and family members, as well as other required patient management activities. This time is exclusive of all separately billable procedures, and teaching time and separate from and in addition to any other critical care service time. Thank you for allowing us to participate in the care of this patient. Please refer to my attending physician's documentation for any further recommendations. (2) Complicated UTI (urinary tract infection): (3) Hypothyroidism: (4) Hypertension: (5) Hyperlipidemia: (6) Sleep apnea: Supervising Physician Co-Signing Physician Notes Patient seen and examined. EMR reviewed. Discussed with hospitalist as well as with critical care GOKUL. Agree with assessment plan as noted. Please refer to my progress note from 01/25/2024 for additional details History of Present Illness Attending Physician: Vernon Meneses MD History of Present Illness Patient is a 58-year-old female with past medical history of HLD, HTN, hypothyroidism, RASHIDA, GERD, and recent admission In which she underwent cystoscope he for basket extraction of kidney stone. She underwent stent retrieval yesterday with Urology and tolerated procedure without any issues. Today patient felt progressively weak and had chills while at work. She presented to the emergency department where she was found to be hypotensive. She received 30 mL/kg fluid resuscitation and was started on ceftriaxone for complicated UTI, however she continued to be hypotensive following fluid resuscitation and was started on Levophed and hydrocortisone. She now presents to the ICU for further management at this time. On arrival to the ICU patient is alert and oriented and hemodynamically stable without acute distress. She reports a mild headache and reports being intermittently short of breath but is otherwise asymptomatic. She does report feeling weak with chills earlier today but says she feels better now and symptoms have resolved. She denies any dizziness, syncope, recent illness or fevers, sore throat, cough or congestion, chest pain or palpitations, abdominal pain, nausea vomiting or diarrhea, swelling in hands or feet. Patient to remain in ICU for further management at this time. Allergies Allergy/AdvReac Type Severity Reaction Status Date / Time No Known Allergies Allergy Verified 01/11/24 07:16 Home Medications Medication Instructions Recorded Confirmed Type calcium 500 mg (as 1 tab PO HS 05/31/18 01/24/24 History carbonate)-vitamin D3 3.125 mcg (125 unit) tablet (Calcium) lactobacillus combination no.4 3 3,000 mmu cells PO QAM 05/31/18 01/24/24 History billion cell capsule (Probiotic) multivitamin 2 cap PO QAM 05/31/18 01/24/24 History turmeric 400 mg capsule 400 mg PO QAM 05/31/18 01/24/24 History cephalexin 500 mg capsule (Keflex) 500 mg PO ONCE #4 caps 02/20/19 01/24/24 Rx duloxetine 60 mg capsule,delayed 60 mg PO QAM 03/01/21 01/24/24 History release CPAP Supplies #1 ea 11/10/22 11/01/23 Rx gabapentin 300 mg capsule 600 mg (2 x 300 mg) PO HS #180 caps 02/17/23 01/24/24 Rx triamcinolone acetonide 0.5 % 1 applic topical DAILY PRN rash 06/05/23 01/24/24 Rx topical cream #15 grams pantoprazole 40 mg tablet,delayed 40 mg PO HS #90 tabs 08/01/23 01/24/24 Rx release carvedilol 25 mg tablet 25 mg PO BID #180 tabs 08/24/23 01/24/24 Rx dulaglutide 1.5 mg/0.5 mL 1.5 mg (0.5 mL) subcut .weekly #2 10/16/23 01/24/24 Rx subcutaneous pen injector mL allopurinol 100 mg tablet 100 mg PO HS #90 tabs 10/25/23 01/24/24 Rx hydrochlorothiazide 25 mg tablet 25 mg PO UD 10/27/23 01/24/24 History olmesartan 40 mg tablet 40 mg PO HS #90 tabs 11/01/23 01/24/24 Rx meloxicam 7.5 mg tablet 7.5 mg PO QAM 11/10/23 01/24/24 History atorvastatin 20 mg tablet 20 mg PO QAM 01/02/24 01/24/24 History famotidine 40 mg tablet (Pepcid) 40 mg PO QAM 01/02/24 01/24/24 History levothyroxine 25 mcg tablet 25 mcg PO QAM 01/02/24 01/24/24 History phenazopyridine 200 mg tablet 200 mg PO Q8H PRN pain #10 tabs 01/11/24 01/24/24 Rx (Pyridium) tamsulosin 0.4 mg capsule 0.4 mg PO QAM 01/24/24 01/24/24 History Patient History Medical History Arthritis Chronic venous insufficiency Per records Diabetes mellitus, type 2 Reported hx prediabetes Diabetes hx listed per records. Most recent HgbA1C 6.9% 10/13/23 Heartburn Hyperlipidemia Hypertension Hypothyroidism Kidney stones Morbid obesity Sleep apnea CPAP Venous stasis dermatitis of both lower extremities Per records Surgical History H/O bilateral salpingo-oophorectomy History of cholecystectomy History of colonoscopy History of dilatation and curettage History of esophagogastroduodenoscopy (EGD) History of herniorrhaphy ventral History of partial hysterectomy Hx of LASIK Status post left partial knee replacement (06/2018) Status post left partial knee replacement [place] teeth removed Family History Father Hypertension Prostate cancer Stroke Brother Prostate cancer Mother Hypertension Depression Kidney disease on HD Family/Other Breast cancer great grandmother Denies family history of Ovarian cancer Myocardial infarction Colorectal cancer Social History Smoking Status: Never smoker Second Hand Exposure: No; Do You Dip or Chew Tobacco: No; Hx Alcohol Use: No Hx Substance Use: No Preferred Language: Somali Communication Ability: Effective Visual Impairment: No Limitations Hearing Ability: Normal Template Inspector Required: No Beliefs That Will Affect Care: None marital status: Current Living Situation: Spouse current occupational status: employed current occupation: paraprofessional/teacher's aid How many Children do You have: 3 Feels Safe at Home: Yes Safety Concerns: Feels Safe At This Time Diet: regular Diet Comment: regular caffeine: No during the past year weight has: remained stable Dental Care, Regularly: Yes Physical Activity Frequency: Daily Seatbelt Use: always Assistive Devices: Denture - Upper, Denture - Lower and Glasses Review of Systems Review of Systems: All systems reviewed & are unremarkable except as noted in HPI & below Physical Exam Constitutional: + obese, cooperative and comfortable Eyes: PERRL, conjunctivae normal, anicteric sclerae ENMT: external ear and nose normal, oropharynx normal Neck: trachea midline, no thyromegaly Respiratory: normal respiratory effort, lungs clear to auscultation Cardiovascular: RRR, no murmur, no edema Heart Sounds: normal S1 and normal S2; no murmur Extremities: no edema Gastrointestinal (Abdomen): normal bowel sounds, soft, nontender, no hepatosplenomegaly Musculoskeletal: no cyanosis or clubbing, extremities motor strength 5/5 Skin: no rashes, warm and dry Neurologic: PERRL, EOMI, accommodation nl, no face palsy, no dysarthria Psychiatric: A+Ox3, euthymic affect Results & Data Results & Data Vital Signs (Past 12 Hours) Vital Signs Temp Pulse Pulse Resp BP BP Pulse Ox 01/24/24 22:00 36.5 C 75 14 146/96 H 92 01/24/24 21:36 36.6 C 85 20 137/73 92 01/24/24 20:55 80 23 111/80 93 01/24/24 20:22 117/78 01/24/24 20:05 85 139/43 L 96 01/24/24 19:42 123/69 01/24/24 19:30 85 20 116/75 94 01/24/24 19:16 82 87/52 L 92 01/24/24 19:10 95/52 L 01/24/24 19:02 82 111/59 L 93 01/24/24 18:56 103/65 01/24/24 18:24 83 97/65 L 93 01/24/24 18:15 94 H 24 109/54 L 92 01/24/24 18:07 85 103/56 L 96 01/24/24 18:02 84 105/62 92 01/24/24 17:05 91 H 71/51 L 92 01/24/24 16:49 95 H 81/51 L 92 01/24/24 15:52 97 H 01/24/24 15:47 95 H 20 86/53 L 94 01/24/24 15:05 97 H 20 71/42 L 91 01/24/24 14:33 93 H 18 101/54 L 92 01/24/24 14:04 99 H 24 94/45 L 93 01/24/24 13:49 37.3 C 01/24/24 13:49 37.3 C 01/24/24 13:33 99 H 20 92 01/24/24 13:00 102 H 21 94 12/18/24 13:00 110/69 01/24/24 12:08 38.4 C H 109 H 28 H 110/69 96 01/24/24 11:27 109 H 01/24/24 10:38 38.1 C H 106 H 20 157/79 H 93 O2 Del Method 01/24/24 22:00 Room Air 01/24/24 21:36 Room Air 01/24/24 20:55 Room Air 01/24/24 20:22 01/24/24 20:05 Room Air 01/24/24 19:42 01/24/24 19:30 Room Air 01/24/24 19:16 Room Air 01/24/24 19:10 01/24/24 19:02 Room Air 01/24/24 18:56 01/24/24 18:24 Room Air 01/24/24 18:15 Room Air 01/24/24 18:07 01/24/24 18:02 Room Air 01/24/24 17:05 Room Air 01/24/24 16:49 Room Air 01/24/24 15:52 01/24/24 15:47 Room Air 01/24/24 15:05 Room Air 01/24/24 14:33 Room Air 01/24/24 14:04 Room Air 01/24/24 13:49 01/24/24 13:49 01/24/24 13:33 01/24/24 13:00 01/24/24 13:00 01/24/24 12:08 Room Air 01/24/24 11:27 01/24/24 10:38 Room Air Coding Level of Care Code 10226 CRITICAL CARE 1ST 30-74M Diagnoses Septic shock A41.9; R65.21 Complicated UTI (urinary tract infection) N39.0 Hypothyroidism E03.9 Hypertension I10 Hyperlipidemia E78.5 Sleep apnea G47.30
[2024-01-24] MEDS: ICU Protocol for HYPERglycemia SCH (22:46)
[2024-01-24] MEDS: INSULIN ASPART PER UNIT CHARGE SC SCH (23:03)
[2024-01-24] MEDS: PANTOprazole 40 MG TAB PO SCH (23:04)
[2024-01-24] MEDS: PLASMA-LYTE A 1,000 ML IV SCH (23:04)
[2024-01-24 23:14] LABS: A calco-baum cmplx NotReported Not Detected (NotDetected); Bact fragilis Not Reported Not Detected (NotDetected); Blood Culture Id Panel See PCR Comment (NotDetected); C auris Not Reported Not Detected (NotDetected); CTX-M Resistant Gene Not Detected (NotDetected); Calbicans Not Reported Not Detected (NotDetected); Candida glabrata Not Reported Not Detected (NotDetected); Candida krusei Not Reported Not Detected (NotDetected); Cneoformans/gatti Not Reported Not Detected (NotDetected); Cparapsilosis Not Reported Not Detected (NotDetected); E cloacae compx Not Reported Not Detected (NotDetected); Efaecalis Not Reported Not Detected (NotDetected); Efaecium Not Reported Not Detected (NotDetected); Enterobacterales Not Reported DETECTED (NotDetected); Escherichia coli Not Reported DETECTED (NotDetected); H influenzae Not Reported Not Detected (NotDetected); IMP Resistant Gene Not Detected (NotDetected); K aerogenes Not Reported Not Detected (NotDetected); KPC Resistant Gene Not Detected (NotDetected); Koxytoca Not Reported Not Detected (NotDetected); Kpneumoniae grp Not Reported Not Detected (NotDetected); Lmonocyt Not Reported Not Detected (NotDetected); N meningitidis Not Reported Not Detected (NotDetected); NDM Resistant Gene Not Detected (NotDetected); OXA 48 Like Resistant Gene Not Detected (NotDetected); P aeruginosa Not Reported Not Detected (NotDetected); Proteus spp Not Reported Not Detected (NotDetected); Salmonella spp Not Reported Not Detected (NotDetected); Staph lugdunensis Not Reported Not Detected (NotDetected); Staph spp. Not Reported Not Detected (NotDetected); Staphaureus Not Reported Not Detected (NotDetected); Staphepi Not Reported Not Detected (NotDetected); Stenmaltophilia Not Reported Not Detected (NotDetected); Strep agal(GrpB) Not Reported Not Detected (NotDetected); Strep pneum Not Reported Not Detected (NotDetected); Strep pyog (GrpA) Not Reported Not Detected (NotDetected); Strep spp Not Reported Not Detected (NotDetected); VIM Resistant Gene Not Detected (NotDetected); mcr-1 Colistin Resistant Gene Not Detected (NotDetected)
[2024-01-24 23:18] LABS: Enterobacterales DETECTED (NotDetected)
[2024-01-25] MEDS ORDERED: HYDROCORTISONE SOD SUCCINATE 100 MG/2 ML VIAL IV SCH (01:00)
[2024-01-25] MEDS: HYDROCORTISONE SOD 50 MG in SYRINGE 0 ML IV SCH (02:00)
[2024-01-25 04:20] LABS: Hemoglobin 10.7 g/dl (12.0-16.0); Mean Corpuscular Hemoglobin 29.4 pg (25.0-34.0); Mean Corpuscular Hgb Conc 33.4 g/dL (32.0-36.0); Mean Corpuscular Volume 87.9 fL (80.0-100.0); Mean Platelet Volume 10.1 fL (9.4-12.4); Platelet Count 191 K/uL (130-400); RDW Coefficient of Variation 12.9 % (11.5-14.5); RDW Standard Deviation 41.5 fL (36.4-46.3); Red Blood Count 3.64 M/uL (4.20-5.40); White Blood Count 23.05 K/ul (4.8-10.8)
[2024-01-25 04:37] LABS: Basophils # (auto) 0.03 K/uL (0.00-0.20); Basophils % (auto) 0.1 %; Calcium 8.1 mg/dl (8.6-10.3); Creatinine Clr Calc Pharmacy 129.1 ml/min; Immature Granulocytes # (auto) 0.24 K/uL (0.01-0.20); Lymphocytes # (auto) 0.88 K/uL (1.20-3.40); Lymphocytes % (auto) 3.8 %; Magnesium 2.1 mg/dl (1.7-2.4); Monocytes # (auto) 0.57 K/uL (0.11-0.59); Monocytes % (auto) 2.5 %; Neutrophils # (auto) 21.33 K/uL (1.40-6.50); Neutrophils % (auto) 92.6 %; Phosphorus 2.5 mg/dl (2.5-4.9); Potassium 3.8 mmol/L (3.5-5.1)
[2024-01-25] MEDS: LEVOTHYROXINE SODIUM 25 MCG TABLET PO SCH (05:32)
[2024-01-25] MEDS ORDERED: INSULIN ASPART PER UNIT CHARGE SC SCH (07:30)
[2024-01-25] MEDS: ENOXAPARIN INJ 40 MG/0.4 ML SYR SQ SCH (07:42)
--- NOTE | 2024-01-25 07:48 | Critical Care Progress Note ---
Date of Service January 25, 2024 Assessment & Plan (1) Septic shock: Plan: Reason Critically Ill: 58-year-old female with past medical history of HTN, HLD, hypothyroidism, GERD and recent urology procedure for stone extraction 1 week ago and stent removal yesterday, Now presents to the ICU hypotensive on vasopressor support likely due to septic shock from complicated UTI. 24-hour events: Patient presented to the emergency room. She was hypotensive despite volume resuscitation and required pressor agents which have been weaned off since early this morning. She is now hemodynamically stable. She feels much better and is much clinically improved. Recommendations Neuro -no current issues. Restart SSRI. Hold Neurontin for now. Increased activity out of bed to chair as tolerated. Cardiac -probable septic shock urinary source. Patient was adequately volume resuscitated. She was treated for relative adrenal insufficiency. Pressors now off. Holding antihypertensives Respiratory - OSAwill need to be reassessed in the outpatient setting GI - Tolerating diet RENAL/LYTES - Creatinine within normal limits, monitor routine BMPs and replete electrolytes as indicated. Continue with fluid resuscitation to maintain euvolemia. Maintain MAP greater than 65. - Strict I's and O's Endo Glycemic control per protocol. On steroids for relative adrenal insufficiency. Would taper to off over 5 days. HEME - Dropping hemoglobin from 12-11. No signs of active bleeding. Continue to follow clinically. ID -probable pyelonephritis. White count up to 23,000 today. Blood cultures 2 out of 2 gram-negative rods. E. coli based Maldi TOF. No resistance genes identified. Day #2 Rocephin. Continue for now. LINES/IV ACCESS - Peripheral IVs, DVT PROPHYLAXIS - Lovenox Patient is hemodynamically stable and can transfer out of the ICU. Critical care services will sign off. Feel free to contact us with questions or concerns (2) Complicated UTI (urinary tract infection): (3) Hypothyroidism: (4) Hypertension: (5) Hyperlipidemia: (6) Sleep apnea: Admission and Anticipated Discharge Date Admission Date: January 24, 2024 Subjective Patient seen and examined. EMR reviewed. Discussed with bedside critical care nurse and on multidisciplinary rounds. The patient is awake alert and conversant. She is sitting up eating breakfast. She states she feels much better. She denies any nausea or vomiting. She does have some residual right sided flank pain which feels similar to when she has had her stent and stones in the past. She is tolerating a diet. No chest pain or palpitations. No shortness of breath. No neurological complaints. Overall she feels much better. Review of Systems Review of Systems: All systems reviewed & are unremarkable except as noted in Subjective Physical Exam Constitutional: WD/WN, vitals as above Neck: trachea midline, no thyromegaly Respiratory: normal respiratory effort, lungs clear to auscultation Cardiovascular: RRR, no murmur, no edema Gastrointestinal (Abdomen): normal bowel sounds, soft, nontender, no hepatosplenomegaly Musculoskeletal: Extremities: extremities normal to inspection Skin: no rashes, warm and dry Neurologic: Nonfocal exam Lymphatic: no cervical lymphadenopathy Results & Data Results & Data Vital Signs (Past 12 Hours) Vital Signs Temp Pulse Pulse Resp BP BP Pulse Ox 01/25/24 06:30 68 116/57 L 01/25/24 06:00 36.5 C 68 22 115/65 92 01/25/24 05:40 74 120/64 01/25/24 05:00 58 L 16 131/58 L 96 01/25/24 04:00 36.6 C 60 17 120/76 95 01/25/24 03:00 36.6 C 62 19 132/69 94 01/25/24 02:30 62 128/79 01/25/24 00:30 65 119/55 L 01/25/24 00:00 67 01/25/24 00:00 36.6 C 66 15 141/59 H 96 01/24/24 23:01 121/57 L 01/24/24 23:00 69 14 94 01/24/24 22:39 77 18 96 01/24/24 22:31 115/61 01/24/24 22:27 73 24 96 01/24/24 22:06 78 20 91 01/24/24 22:01 146/96 H 01/24/24 22:00 36.5 C 75 14 146/96 H 92 01/24/24 21:57 80 24 92 01/24/24 21:36 36.6 C 85 20 137/73 92 01/24/24 21:30 83 20 92 01/24/24 21:27 137/73 01/24/24 21:24 85 18 01/24/24 21:03 80 25 H 92 01/24/24 21:00 136/78 01/24/24 20:55 80 23 111/80 93 01/24/24 20:22 117/78 01/24/24 20:05 85 139/43 L 96 O2 Del Method O2 Flow Rate 01/25/24 06:30 01/25/24 06:00 Room Air 01/25/24 05:40 01/25/24 05:00 Nasal Cannula 2 01/25/24 04:00 Nasal Cannula 2 01/25/24 03:00 Nasal Cannula 2 01/25/24 02:30 01/25/24 00:30 01/25/24 00:00 01/25/24 00:00 Nasal Cannula 2 01/24/24 23:01 01/24/24 23:00 01/24/24 22:39 01/24/24 22:31 01/24/24 22:27 01/24/24 22:06 01/24/24 22:01 Nasal Cannula 2 01/24/24 22:00 Room Air 01/24/24 21:57 01/24/24 21:36 Room Air 01/24/24 21:30 01/24/24 21:27 01/24/24 21:24 01/24/24 21:03 01/24/24 21:00 01/24/24 20:55 Room Air 01/24/24 20:22 01/24/24 20:05 Room Air Critical Care Results & Data Vital Signs (Past 12 Hours) Vital Signs Temp Pulse Pulse Resp BP BP Pulse Ox 01/25/24 06:30 68 116/57 L 01/25/24 06:00 36.5 C 68 22 115/65 92 01/25/24 05:40 74 120/64 01/25/24 05:00 58 L 16 131/58 L 96 01/25/24 04:00 36.6 C 60 17 120/76 95 01/25/24 03:00 36.6 C 62 19 132/69 94 01/25/24 02:30 62 128/79 01/25/24 00:30 65 119/55 L 01/25/24 00:00 67 01/25/24 00:00 36.6 C 66 15 141/59 H 96 01/24/24 23:01 121/57 L 01/24/24 23:00 69 14 94 01/24/24 22:39 77 18 96 01/24/24 22:31 115/61 01/24/24 22:27 73 24 96 01/24/24 22:06 78 20 91 01/24/24 22:01 146/96 H 01/24/24 22:00 36.5 C 75 14 146/96 H 92 01/24/24 21:57 80 24 92 01/24/24 21:36 36.6 C 85 20 137/73 92 01/24/24 21:30 83 20 92 01/24/24 21:27 137/73 01/24/24 21:24 85 18 01/24/24 21:03 80 25 H 92 01/24/24 21:00 136/78 01/24/24 20:55 80 23 111/80 93 01/24/24 20:22 117/78 01/24/24 20:05 85 139/43 L 96 O2 Del Method O2 Flow Rate 01/25/24 06:30 01/25/24 06:00 Room Air 01/25/24 05:40 01/25/24 05:00 Nasal Cannula 2 01/25/24 04:00 Nasal Cannula 2 01/25/24 03:00 Nasal Cannula 2 01/25/24 02:30 01/25/24 00:30 01/25/24 00:00 01/25/24 00:00 Nasal Cannula 2 01/24/24 23:01 01/24/24 23:00 01/24/24 22:39 01/24/24 22:31 01/24/24 22:27 01/24/24 22:06 01/24/24 22:01 Nasal Cannula 2 01/24/24 22:00 Room Air 01/24/24 21:57 01/24/24 21:36 Room Air 01/24/24 21:30 01/24/24 21:27 01/24/24 21:24 01/24/24 21:03 01/24/24 21:00 01/24/24 20:55 Room Air 01/24/24 20:22 01/24/24 20:05 Room Air Lab & Micro Results (Past 24 Hours) RBC 3.64 M/uL (4.20-5.40) L 01/25/24 WBC 23.05 K/ul (4.8-10.8) H 01/25/24 Hgb 10.7 g/dl (12.0-16.0) L 01/25/24 Hct 32.0 % (37.0-47.0) L 01/25/24 MCV 87.9 fL (80.0-100.0) 01/25/24 MCH 29.4 pg (25.0-34.0) 01/25/24 MCHC 33.4 g/dL (32.0-36.0) 01/25/24 RDW Standard Deviation 41.5 fL (36.4-46.3) 01/25/24 RDW Coefficient of Variation 12.9 % (11.5-14.5) 01/25/24 Plt Count 191 K/uL (130-400) 01/25/24 MPV 10.1 fL (9.4-12.4) 01/25/24 Neutrophils (%) (Auto) 92.6 % 01/25/24 Lymphocytes (%) (Auto) 3.8 % 01/25/24 Monocytes # (Auto) 0.57 K/uL (0.11-0.59) 01/25/24 Eosinophils # (Auto) 0.00 K/uL (0.00-0.50) 01/25/24 Immature Granulocyte % (Auto) 1.0 % 01/25/24 Neutrophils # (Auto) 21.33 K/uL (1.40-6.50) H 01/25/24 Lymphocytes # (Auto) 0.88 K/uL (1.20-3.40) L 01/25/24 Monocytes # (Auto) 0.57 K/uL (0.11-0.59) 01/25/24 Eosinophils # (Auto) 0.00 K/uL (0.00-0.50) 01/25/24 Basophils # (Auto) 0.03 K/uL (0.00-0.20) 01/25/24 Immature Granulocyte # (Auto) 0.24 K/uL (0.01-0.20) H 01/24 Na 138 mmol/L (136-145) 01/25/24 K 3.8 mmol/L (3.5-5.1) 01/25/24 Cl 104 mmol/L (98-107) 01/25/24 CO2 26 mmol/L (21-32) 01/25/24 Anion Gap 8 (3-11) 01/25/24 BUN 12 mg/dl (6-23) 01/25/24 Creatinine 0.60 mg/dl (0.6-1.2) 01/25/24 BUN/Creatinine Ratio 20.0 (10-20) 01/25/24 Glu 217 mg/dl (70-99(Fasting)) H 01/25/24 Ca 8.1 mg/dl (8.6-10.3) L 01/25/24 Phosphorus Level 2.5 mg/dl (2.5-4.9) 01/25/24 Total Bilirubin 0.7 mg/dl (0.2-1.0) 01/24/24 AST 28 U/L (13-39) 01/24/24 ALT 26 U/L (7-52) 01/24/24 Alkaline Phosphatase 83 U/L (34-104) 01/24/24 TP 7.6 gm/dl (6.0-8.3) 01/24/24 Albumin 3.9 gm/dl (3.4-5.0) 01/24/24 Globulin 3.7 gm/dl (2.5-4.0) 01/24/24 Albumin/Globulin Ratio 1.1 (0.9-2) 01/24/24 Mg 2.1 mg/dl (1.7-2.4) 01/25/24 04:00 Calcium Level 8.1 mg/dl (8.6-10.3) L 01/25/24 04:00 Prothromb Time International Ratio 1.0 (0.9-1.1) 01/24/24 11:1 3 Microbiology 01/24/24 11:13 Aerobic Blood Culture - Preliminary Blood Gram negative bacilli Anaerobic Blood Culture - Preliminary Gram negative bacilli 01/24/24 11:38 Aerobic Blood Culture - Preliminary Blood Gram negative bacilli Anaerobic Blood Culture - Preliminary Gram negative bacilli Diagnostic Findings (Past 24 Hours) Chest X-Ray 01/24/24 10:54 XR chest 1V portable CLINICAL HISTORY: Fever TECHNIQUE: Single frontal radiograph of the chest was obtained. Comparison: Comparison is made to chest radiograph 11/06/2023 FINDINGS: Exam is limited by underpenetration. The cardiomediastinal silhouette is normal. The lungs are clear. No evidence of pleural effusion or pneumothorax. IMPRESSION: No acute abnormalities and in particular no radiographic evidence of pneumonia. ACT 112: Negative or not required by law. Electronically signed by: Salvador Biggs M.D. 01/24/2024 11:20 AM Abdomen/Pelvis CT 01/24/24 12:[address] WITH IV CONTRAST CT DOSE: 1451.1 mGy.cm HISTORY: Acute left-sided flank pain left flank pain, fever, recent stent TECHNIQUE: Multiaxial CT images of the abdomen and pelvis were performed following the IV administration of 94 cc of Optiray, A dose lowering technique was utilized adhering to the principles of ALARA. COMPARISON STUDY: 11/06/2023 FINDINGS: Mild cardiomegaly. Clear lung bases. No pneumatosis or pneumoperitoneum. Unremarkable spleen, pancreas and adrenal glands. Cholecystectomy. Hepatomegaly with hepatic steatosis. Patency of the hepatic and portal veins. Unremarkable right kidney. There is mild left-sided hydroureteronephrosis. Scarring of the superior pole left kidney with increased size of the ill-defined hypodense lesion measuring 1.9 cm, previously 1.1 cm. There is still thickening of the left renal collecting system and left ureter. No obstructing stone or lesion. A 3 mm stone is present within the inferior pole left kidney at the site of the previously noted 7 mm calculus. Stable 5.2 cm tubular cystic structure within the pelvis. Hysterectomy. Unremarkable urinary bladder containing a punctate focus of air. No lymphadenopathy. Colonic diverticulosis. No bowel obstruction or bowel wall thickening. Diastases recti with anterior abdominal wall herniorrhaphy changes. Normal appendix. Fat filled umbilical hernia with diastases of 2 cm. IMPRESSION: 1. Mild left-sided hydroureteronephrosis with associated urothelial thickening suggestive of an ascending infection. Correlate with urinalysis. 2. 3 mm left renal calculus. No ureteral calculi identified. 3. Mild cortical scarring of the superior pole left kidney redemonstrated. There is a 1.9 cm hypodense focus within the superior pole at the location of a previously noted low suspicion 1.1 cm lesion. This may represent increased size of a calyceal diverticulum or cyst. A developing renal abscess considered less likely. One-month follow-up renal ultrasound recommended. 4. Unchanged low suspicion 5.2 cm tubular cyst of the pelvis. ACT 112: Negative or not required by law. The above report was generated using voice recognition software. It may contain grammatical, syntax or spelling errors. Electronically signed by: Stanislav Romero M.D. 01/24/2024 2:12 PM I & O Totals 24 Hours 01/24/24 01/25/24 01/26/24 06:59 06:59 06:59 Intake Total 4596.707 / 4596.707 1000 / 1000 Output Total 1001 / 1001 Balance 3595.707 / 3595.707 1000 / 1000 Cumulative 01/24/24 10:27 thru 01/25/24 07:04 Intake Total 5596.707 Output Total 1001 Balance 4595.707 RT Ventilator Mngmt (Last Documented) Ventilator Ordered Settings Respiratory Rate 22 01/25/24 06:00 Ventilator - PT Measurements Respiratory Rate 22 Coding Level of Care Code 89707 SUB INP/OBS CARE 3/50MIN Diagnoses Septic shock A41.9; R65.21 Complicated UTI (urinary tract infection) N39.0 Hypothyroidism E03.9 Hypertension I10 Hyperlipidemia E78.5 Sleep apnea G47.30
[2024-01-25] MEDS ORDERED: PHENAZOPYRIDINE HCL 200 MG TAB PO PRN (08:25)
[2024-01-25] MEDS: DULoxetine HCL 60 MG CAP PO SCH (08:27)
[2024-01-25] MEDS: TAMSULOSIN HCL 0.4 MG CAP PO SCH (08:27)
[2024-01-25] MEDS: ATORVASTATIN 20 MG TAB PO SCH (08:27)
[2024-01-25] MEDS: FAMOTIDINE 40 MG TABLET PO SCH (08:27)
[2024-01-25] MEDS: MULTIVITAMIN TAB PO SCH (09:21)
--- NOTE | 2024-01-25 09:55 | Hospitalist Progress Note ---
Date of Service January 25, 2024 Assessment & Plan (1) Sepsis: Plan: -septic shock from complicated UTI and recent stent removal -s/p IVF, pressors, and steroids -BP stable at this time -day # of rocephin -Blood cultures 2/2 for gram negative rods -E. coli -ID consulted (2) Complicated UTI (urinary tract infection): Plan: As noted (3) Hypothyroidism: Plan: Hypothyroidism Continue Synthroid (4) Hypertension: Plan: Carvedilol held for hypotension. Hydrochlorothiazide, olmesartan held for hypotension (5) Diabetes mellitus, type 2: Plan: hyperglycemia protocol (6) Sleep apnea: Plan: CPAP nightly Plan DVT prophylaxis: Lovenox Disposition: stable for transfer to floor CODE STATUS: Full code Diet: DM2 Admission and Anticipated Discharge Date Admission Date: January 24, 2024 Subjective No events overnight, pt feeling better. She is off pressors this morning, BP is stable. Review of Systems Review of Systems: CONST: Negative for fever, body aches and chills. HENT: Negative for neck pain/stiffness, headache, congestion, sore throat, swelling. EYES: Negative for discharge/pain or vision changes. RESP: Negative for cough/hemoptysis and shortness of breath. CV: Negative chest pain, difficulty breathing, palpitations. ABD: Negative pain, nausea, vomiting. : Negative increase frequency, dysuria, blood in urine or stool. MUSC: Negative for muscle aches, edema. SKIN: Negative rash, lesions/sores. NEURO: Negative headache, dizziness, weakness. Physical Exam Physical Exam: GENERAL APPEARANCE NAD, activity normal for age, well developed/ well nourished, no cyanosis, pallor, or diaphoresis. EYES lids/conjunctiva normal. EARS/NOSE/THROAT Mucous membranes moist, nares normal, lips/teeth normal uvula midline without oral pharyngeal erythema, exudate or swelling TMs normal bilaterally. No lymphangitis/lymphedema. HEAD/NECK normocephalic atraumatic, no facial trauma, neck is supple. RESPIRATORY respiratory effort normal, speaks in full sentences, no tripod position, no accessory muscle use. Lungs clear to auscultation without rhonchi, wheezes, rales CARDIAC Regular rate and rhythm, no edema. ABDOMINAL Soft, ND/NT. No evidence of fluid wave. No pulsatile masses on exam, rebound tenderness, Ortiz sign or pain over Mcburney's point. MUSCLES/EXTREMITIES No abnormal range of motion, no swelling. SKIN Warm, pink and dry. No rashes, dermatoses, petechiae or lesions. NEUROLOGICAL Speech is clear and appropriate. Normal level of consciousness. Gait and coordination are normal. 5/5 strength in all extremities. PSYCH Normal mood and affect. Judgement/competence is appropriate Results & Data Results & Data Vital Signs (Past 12 Hours) Vital Signs Temp Pulse Pulse Resp BP BP Pulse Ox 01/25/24 08:39 01/25/24 08:36 75 01/25/24 08:35 36.5 C 01/25/24 08:30 125/67 01/25/24 08:29 71 26 H 91 01/25/24 08:26 74 29 H 92 01/25/24 08:01 113/58 L 01/25/24 08:01 113/58 L 01/25/24 07:53 22 90 01/25/24 07:35 67 23 91 01/25/24 07:31 123/61 01/25/24 07:31 123/61 01/25/24 07:29 72 19 91 01/25/24 07:08 91 01/25/24 07:01 121/63 01/25/24 06:30 68 116/57 L 01/25/24 06:00 36.5 C 68 22 115/65 92 01/25/24 05:40 74 120/64 01/25/24 05:00 58 L 16 131/58 L 96 01/25/24 04:00 36.6 C 60 17 120/76 95 01/25/24 03:00 36.6 C 62 19 132/69 94 01/25/24 02:30 62 128/79 01/25/24 00:30 65 119/55 L 01/25/24 00:00 67 01/25/24 00:00 36.6 C 66 15 141/59 H 96 01/24/24 23:01 121/57 L 01/24/24 23:00 69 14 94 01/24/24 22:39 77 18 96 01/24/24 22:31 115/61 01/24/24 22:27 73 24 96 01/24/24 22:06 78 20 91 01/24/24 22:01 146/96 H 01/24/24 22:00 36.5 C 75 14 146/96 H 92 01/24/24 21:57 80 24 92 O2 Del Method O2 Flow Rate 01/25/24 08:39 Room Air 01/25/24 08:36 01/25/24 08:35 01/25/24 08:30 01/25/24 08:29 01/25/24 08:26 01/25/24 08:01 01/25/24 08:01 01/25/24 07:53 01/25/24 07:35 01/25/24 07:31 01/25/24 07:31 01/25/24 07:29 01/25/24 07:08 01/25/24 07:01 01/25/24 06:30 01/25/24 06:00 Room Air 01/25/24 05:40 01/25/24 05:00 Nasal Cannula 2 01/25/24 04:00 Nasal Cannula 2 01/25/24 03:00 Nasal Cannula 2 01/25/24 02:30 01/25/24 00:30 01/25/24 00:00 01/25/24 00:00 Nasal Cannula 2 01/24/24 23:01 01/24/24 23:00 01/24/24 22:39 01/24/24 22:31 01/24/24 22:27 01/24/24 22:06 01/24/24 22:01 Nasal Cannula 2 01/24/24 22:00 Room Air 01/24/24 21:57 PG Care Time/CCT Total # of Minutes Spent Total Time Spent with Patient: Total time spent is greater than 50% in coordination of care (as documented) at patient's floor/unit and/or counseling patient: Coding Level of Care Code 08685 SUB INP/OBS CARE 2/35MIN Diagnoses Sepsis A41.9 Complicated UTI (urinary tract infection) N39.0 Hypothyroidism E03.9 Hypertension I10 Diabetes mellitus, type 2 E11.9 Sleep apnea G47.30
[2024-01-25] MEDS: cefTRIAXone SODIUM 2,000 MG/50 ML BAG IV SCH (12:37)
[2024-01-25] MEDS: ACETAMINOPHEN 500 MG TAB PO PRN (12:38)
--- NOTE | 2024-01-25 14:22 | Infectious Disease Consult ---
Date of Consultation January 25, 2024 Assessment & Plan (1) Septic shock: (2) E coli bacteremia: (3) Complicated UTI (urinary tract infection): (4) Kidney stones: Plan 58yo F with h/o RASHIDA on CPAP, venous insufficiency s/p ablation in 2021, left knee replacement, hypothyroidism, HTN, HLD, admission in 10/2023 with viral gastroenteritis but also f/w left nephrolithiasis s/p lithotripsy and left ureteral stent on 01/10 with stent removal on 01/22 who presented on 01/23 with progressive weakness and chills at work, along with suprapubic pain and dysuria. Here, she was febrile to 38.4, hypotensive to 70s and placed on levophed. Initial labs with WBC 12.53, Cr 0.75, LFT wnl. PCT 0.44. UA > 50 WBC. CXR neg. CTAP with mild left-sided hydroureteronephrosis with associated urothelial thickening suggestive of an ascending infection; 3 mm left renal calculus, no ureteral calculi identified; mild cortical scarring of the superior pole left kidney redemonstrated, there is a 1.9 cm hypodense focus within the superior pole at the location of a previously noted low suspicion 1.1 cm lesion; this may represent increased size of a calyceal diverticulum or cyst, a developing renal abscess considered less likely; unchanged low suspicion 5.2 cm tubular cyst of the pelvis. UCx and BCx with E coli. She was been started on CTX. ID consulted 01/24. She is off pressors. Did get a dose of hydrocortisone. No issues with her hardware in left knee. No other prosthetic material or cardiac devices. # E coli bacteremia 2/2 UTI # Septic shock off pressors # Left hydroureteronephrosis, no ureteral calculus, left renal calculus # h/o recent lithotripsy and ureteral stent removal # H/o left knee replacement - f/u blood cx - continue CTX 2g IV daily - final regimen pending above and continued clinical improvement ID will continue to follow. If questions or concerns, contact via [employer] or Infectious Disease Call Center . Vicky Lo MD [facility], Division of Infectious Diseases Consultation Information Consultation was provided via telemedicine using two-way real-time interactive telecommunication between the patient and the telemedicine provider. For the duration of the visit, the provider was performing the assessment from a different facility than the patient. This includesuse of bluetooth stethoscope forauscultationperformed by the telepresenter that the telemedicine provider can hear if described in the physical exam. Metal Sander contact information: Please call [facility] Call Center . (Phone Number For Physician Use Only) After establishing a telemedicine visit, patient was: Patient was verified with two unique identifiers, Patient/authorized rep acknowledged consent and understanding and Gave permission to continue telehealth session Time Spent with Patient: Initial => 75 min History of Present Illness Reason for Consultation: gram negative bacteremia Attending Physician: John Correa MD History of Present Illness 58yo F with h/o RASHIDA on CPAP, venous insufficiency s/p ablation in 2021, hypothyroidism, left knee replacement, HTN, HLD, admission in 10/2023 with viral gastroenteritis but also f/w left nephrolithiasis s/p lithotripsy and left ureteral stent on 01/10 with stent removal on 01/22 who presented on 01/23 with progressive weakness and chills at work. Also with suprapubic pain and dysuria. Here, she was febrile to 38.4, hypotensive to 70s and placed on levophed. Initial labs with WBC 12.53, Cr 0.75, LFT wnl. PCT 0.44. UA > 50 WBC. CXR neg. CTAP with mild left-sided hydroureteronephrosis with associated urothelial thickening suggestive of an ascending infection; 3 mm left renal calculus, no ureteral calculi identified; mild cortical scarring of the superior pole left kidney redemonstrated, there is a 1.9 cm hypodense focus within the superior pole at the location of a previously noted low suspicion 1.1 cm lesion; this may represent increased size of a calyceal diverticulum or cyst, a developing renal abscess considered less likely; unchanged low suspicion 5.2 cm tubular cyst of the pelvis. UCx and BCx with E coli. She was been started on CTX. ID consulted 01/24. On evaluation, she says she feels better today. Previously had pain all over. No nausea, vomiting, or diarrhea. No pain on left knee or back. Allergies Allergy/AdvReac Type Severity Reaction Status Date / Time No Known Allergies Allergy Verified 01/11/24 07:16 Home Medications Medication Instructions Recorded Confirmed Type calcium 500 mg (as 1 tab PO HS 05/31/18 01/24/24 History carbonate)-vitamin D3 3.125 mcg (125 unit) tablet (Calcium) lactobacillus combination no.4 3 3,000 mmu cells PO QAM 05/31/18 01/24/24 History billion cell capsule (Probiotic) multivitamin 2 cap PO QAM 05/31/18 01/24/24 History turmeric 400 mg capsule 400 mg PO QAM 05/31/18 01/24/24 History cephalexin 500 mg capsule (Keflex) 500 mg PO ONCE #4 caps 02/20/19 01/24/24 Rx duloxetine 60 mg capsule,delayed 60 mg PO QAM 03/01/21 01/24/24 History release CPAP Supplies #1 ea 11/10/22 11/01/23 Rx gabapentin 300 mg capsule 600 mg (2 x 300 mg) PO HS #180 caps 02/17/23 01/24/24 Rx triamcinolone acetonide 0.5 % 1 applic topical DAILY PRN rash 06/05/23 01/24/24 Rx topical cream #15 grams pantoprazole 40 mg tablet,delayed 40 mg PO HS #90 tabs 08/01/23 01/24/24 Rx release carvedilol 25 mg tablet 25 mg PO BID #180 tabs 08/24/23 01/24/24 Rx dulaglutide 1.5 mg/0.5 mL 1.5 mg (0.5 mL) subcut .weekly #2 10/16/23 01/24/24 Rx subcutaneous pen injector mL allopurinol 100 mg tablet 100 mg PO HS #90 tabs 10/25/23 01/24/24 Rx hydrochlorothiazide 25 mg tablet 25 mg PO UD 10/27/23 01/24/24 History olmesartan 40 mg tablet 40 mg PO HS #90 tabs 11/01/23 01/24/24 Rx meloxicam 7.5 mg tablet 7.5 mg PO QAM 11/10/23 01/24/24 History atorvastatin 20 mg tablet 20 mg PO QAM 01/02/24 01/24/24 History famotidine 40 mg tablet (Pepcid) 40 mg PO QAM 01/02/24 01/24/24 History levothyroxine 25 mcg tablet 25 mcg PO QAM 01/02/24 01/24/24 History phenazopyridine 200 mg tablet 200 mg PO Q8H PRN pain #10 tabs 01/11/24 01/24/24 Rx (Pyridium) tamsulosin 0.4 mg capsule 0.4 mg PO QAM 01/24/24 01/24/24 History Patient History Medical History Arthritis Chronic venous insufficiency Per records Diabetes mellitus, type 2 Reported hx prediabetes Diabetes hx listed per records. Most recent HgbA1C 6.9% 10/13/23 Heartburn Hyperlipidemia Hypertension Hypothyroidism Kidney stones Morbid obesity Sleep apnea CPAP Venous stasis dermatitis of both lower extremities Per records Surgical History H/O bilateral salpingo-oophorectomy History of cholecystectomy History of colonoscopy History of dilatation and curettage History of esophagogastroduodenoscopy (EGD) History of herniorrhaphy ventral History of partial hysterectomy Hx of LASIK Status post left partial knee replacement (06/2018) Status post left partial knee replacement [place] teeth removed Family History Father Hypertension Prostate cancer Stroke Brother Prostate cancer Mother Hypertension Depression Kidney disease on HD Family/Other Breast cancer great grandmother Denies family history of Ovarian cancer Myocardial infarction Colorectal cancer Social History Smoking Status: Never smoker Second Hand Exposure: No; Do You Dip or Chew Tobacco: No; Hx Alcohol Use: No Hx Substance Use: No Preferred Language: Irish Communication Ability: Effective Visual Impairment: No Limitations Hearing Ability: Normal [employer] As[employer] Required: No Beliefs That Will Affect Care: None marital status: Current Living Situation: Spouse current occupational status: employed current occupation: paraprofessional/teacher's aid How many Children do You have: 3 Feels Safe at Home: Yes Safety Concerns: Feels Safe At This Time Diet: regular Diet Comment: regular caffeine: No during the past year weight has: remained stable Dental Care, Regularly: Yes Physical Activity Frequency: Daily Seatbelt Use: always Assistive Devices: CPAP Review of System 10-point review of systems reviewed and are negative except for as above. Physical Exam Physical Exam: General: Awake, alert, no acute distress HEENT: NC/AT, EOMI, mmm Neck: supple Lungs: respirations non-labored Heart: nl peripheral perfusion Abdomen: soft, ttp in lower abdomen and across top Back: no spinal tenderness Ext: no swelling or tenderness of left knee Skin: no rash Neuro: moving all extremities Results & Data Vital Signs (Past 12 Hours) Vital Signs Temp Pulse Pulse Pulse Resp BP BP 01/25/24 13:33 36.4 C L 72 20 148/72 H 01/25/24 13:25 01/25/24 12:04 37.3 C 01/25/24 12:03 74 27 H 01/25/24 11:36 70 33 H 01/25/24 11:27 71 25 H 01/25/24 11:01 123/82 01/25/24 11:01 123/82 01/25/24 10:57 75 21 01/25/24 10:30 67 26 H 01/25/24 10:30 130/67 01/25/24 10:02 74 17 01/25/24 10:01 116/65 01/25/24 10:01 116/65 01/25/24 10:01 116/65 01/25/24 09:53 68 25 H 01/25/24 09:35 71 20 01/25/24 09:31 123/82 01/25/24 09:31 123/82 01/25/24 09:29 70 24 01/25/24 09:02 72 29 H 01/25/24 09:00 126/67 01/25/24 09:00 126/67 01/25/24 09:00 126/67 01/25/24 08:47 76 22 01/25/24 08:44 72 21 01/25/24 08:39 01/25/24 08:36 75 01/25/24 08:35 36.5 C 01/25/24 08:30 125/67 01/25/24 08:29 71 26 H 01/25/24 08:26 74 29 H 01/25/24 08:01 113/58 L 01/25/24 08:01 113/58 L 01/25/24 07:53 22 01/25/24 07:35 67 23 01/25/24 07:31 123/61 01/25/24 07:31 123/61 01/25/24 07:29 72 19 01/25/24 07:08 01/25/24 07:01 121/63 01/25/24 06:30 68 116/57 L 01/25/24 06:00 36.5 C 68 22 115/65 01/25/24 05:40 74 120/64 01/25/24 05:00 58 L 16 131/58 L 01/25/24 04:00 36.6 C 60 17 120/76 01/25/24 03:00 36.6 C 62 19 132/69 01/25/24 02:30 62 128/79 Pulse Ox O2 Del Method O2 Flow Rate 01/25/24 13:33 95 Room Air 01/25/24 13:25 Room Air 01/25/24 12:04 01/25/24 12:03 01/25/24 11:36 01/25/24 11:27 01/25/24 11:01 01/25/24 11:01 01/25/24 10:57 91 01/25/24 10:30 92 01/25/24 10:30 01/25/24 10:02 96 01/25/24 10:01 01/25/24 10:01 01/25/24 10:01 01/25/24 09:53 90 01/25/24 09:35 91 01/25/24 09:31 01/25/24 09:31 01/25/24 09:29 90 01/25/24 09:02 91 01/25/24 09:00 01/25/24 09:00 01/25/24 09:00 01/25/24 08:47 92 01/25/24 08:44 93 01/25/24 08:39 Room Air 01/25/24 08:36 01/25/24 08:35 01/25/24 08:30 01/25/24 08:29 91 01/25/24 08:26 92 01/25/24 08:01 01/25/24 08:01 01/25/24 07:53 90 01/25/24 07:35 91 01/25/24 07:31 01/25/24 07:31 01/25/24 07:29 91 01/25/24 07:08 91 01/25/24 07:01 01/25/24 06:30 01/25/24 06:00 92 Room Air 01/25/24 05:40 01/25/24 05:00 96 Nasal Cannula 2 01/25/24 04:00 95 Nasal Cannula 2 01/25/24 03:00 94 Nasal Cannula 2 01/25/24 02:30 Laboratory Results Labs reviewed. Diagnostic Findings Imaging reviewed.
[2024-01-26] MEDS: MELATONIN 3 MG TAB PO PRN (01:26)
[2024-01-26] MEDS: ALBUT/IPRATROP 3MG/0.5MG NEB 3 ML VIAL NEB STA (02:01)
[2024-01-26 04:45] LABS: Basophils # (auto) 0.04 K/uL (0.00-0.20); Basophils % (auto) 0.3 %; Eosinophils # (auto) 0.05 K/uL (0.00-0.50); Eosinophils % (auto) 0.3 %; Hematocrit (blood only) 29.9 % (37.0-47.0); Immature Granulocytes % (auto) 0.7 %; Lymphocytes # (auto) 1.33 K/uL (1.20-3.40); Lymphocytes % (auto) 8.9 %; Mean Corpuscular Hemoglobin 29.3 pg (25.0-34.0); Mean Corpuscular Hgb Conc 33.4 g/dL (32.0-36.0); Mean Corpuscular Volume 87.7 fL (80.0-100.0); Mean Platelet Volume 10.8 fL (9.4-12.4); Monocytes # (auto) 0.68 K/uL (0.11-0.59); Monocytes % (auto) 4.6 %; Neutrophils # (auto) 12.68 K/uL (1.40-6.50); Neutrophils % (auto) 85.2 %; Platelet Count 198 K/uL (130-400); RDW Coefficient of Variation 13.1 % (11.5-14.5); RDW Standard Deviation 42.1 fL (36.4-46.3); Red Blood Count 3.41 M/uL (4.20-5.40); White Blood Count 14.88 K/ul (4.8-10.8)
[2024-01-26 05:12] LABS: BUN Creatinine Ratio 20.8 (10-20); Calcium 8.3 mg/dl (8.6-10.3); Creatinine Clr Calc Pharmacy 146.2 ml/min; Magnesium 1.9 mg/dl (1.7-2.4); Phosphorus 2.2 mg/dl (2.5-4.9); Potassium 3.4 mmol/L (3.5-5.1)
--- NOTE | 2024-01-26 09:41 | Hospitalist Progress Note ---
Date of Service January 26, 2024 Assessment & Plan (1) Sepsis: Plan: -septic shock from complicated UTI and recent stent removal -s/p IVF, pressors, and steroids -BP stable at this time -day #3 of rocephin -Blood cultures 2/2 for gram negative rods -E. coli -ID consult appreciated -will order echo to r/o endocarditis (2) Complicated UTI (urinary tract infection): Plan: As noted (3) Hypothyroidism: Plan: Hypothyroidism Continue Synthroid (4) Hypertension: Plan: Carvedilol held for hypotension. Hydrochlorothiazide, olmesartan held for hypotension (5) Diabetes mellitus, type 2: Plan: hyperglycemia protocol (6) Sleep apnea: Plan: CPAP nightly Plan DVT prophylaxis: Lovenox Disposition: stable for transfer to floor CODE STATUS: Full code Diet: DM2 Admission and Anticipated Discharge Date Admission Date: January 24, 2024 Subjective Pt had episode of SOB last night, which improved with breathing treatment. She feels better this am with no complaints. Review of Systems Review of Systems: CONST: Negative for fever, body aches and chills. HENT: Negative for neck pain/stiffness, headache, congestion, sore throat, swelling. EYES: Negative for discharge/pain or vision changes. RESP: Negative for cough/hemoptysis and shortness of breath. CV: Negative chest pain, difficulty breathing, palpitations. ABD: Negative pain, nausea, vomiting. : Negative increase frequency, dysuria, blood in urine or stool. MUSC: Negative for muscle aches, edema. SKIN: Negative rash, lesions/sores. NEURO: Negative headache, dizziness, weakness. Physical Exam Physical Exam: GENERAL APPEARANCE NAD, activity normal for age, well developed/ well nourished, no cyanosis, pallor, or diaphoresis. EYES lids/conjunctiva normal. EARS/NOSE/THROAT Mucous membranes moist, nares normal, lips/teeth normal uvula midline without oral pharyngeal erythema, exudate or swelling TMs normal bilaterally. No lymphangitis/lymphedema. HEAD/NECK normocephalic atraumatic, no facial trauma, neck is supple. RESPIRATORY respiratory effort normal, speaks in full sentences, no tripod position, no accessory muscle use. Lungs clear to auscultation without rhonchi, wheezes, rales CARDIAC Regular rate and rhythm, no edema. ABDOMINAL Soft, ND/NT. No evidence of fluid wave. No pulsatile masses on exam, rebound tenderness, Ortiz sign or pain over Mcburney's point. MUSCLES/EXTREMITIES No abnormal range of motion, no swelling. SKIN Warm, pink and dry. No rashes, dermatoses, petechiae or lesions. NEUROLOGICAL Speech is clear and appropriate. Normal level of consciousness. Gait and coordination are normal. 5/5 strength in all extremities. PSYCH Normal mood and affect. Judgement/competence is appropriate Results & Data Results & Data Vital Signs (Past 12 Hours) Vital Signs Temp Pulse Pulse Resp BP Pulse Ox O2 Del Method 01/26/24 07:49 36.9 C 71 18 164/98 H 90 Nasal Cannula 01/26/24 03:24 36.8 C 83 18 124/75 92 Nasal Cannula 01/26/24 02:02 88 22 90 Nasal Cannula 01/26/24 00:01 36.7 C 88 18 131/84 92 Nasal Cannula 01/25/24 22:51 78 01/25/24 21:58 Nasal Cannula O2 Flow Rate 01/26/24 07:49 3 01/26/24 03:24 3 01/26/24 02:02 3 01/26/24 00:01 3 01/25/24 22:51 01/25/24 21:58 2 PG Care Time/CCT Total # of Minutes Spent Total Time Spent with Patient: Total time spent is greater than 50% in coordination of care (as documented) at patient's floor/unit and/or counseling patient: Coding Level of Care Code 35179 SUB INP/OBS CARE 2/35MIN Diagnoses Sepsis A41.9 Complicated UTI (urinary tract infection) N39.0 Hypothyroidism E03.9 Hypertension I10 Diabetes mellitus, type 2 E11.9 Sleep apnea G47.30
--- NOTE | 2024-01-26 11:49 | Infectious Disease Progress Nt ---
Date of Service January 26, 2024 Assessment & Plan (1) E coli bacteremia: (2) Complicated UTI (urinary tract infection): (3) Septic shock: (4) Kidney stones: Plan 58yo F with h/o RASHIDA on CPAP, venous insufficiency s/p ablation in 2021, left knee replacement, hypothyroidism, HTN, HLD, admission in 10/2023 with viral gastroenteritis but also f/w left nephrolithiasis s/p lithotripsy and left ureteral stent on 01/10 with stent removal on 01/22 who presented on 01/23 with progressive weakness and chills at work, along with suprapubic pain and dysuria. Here, she was febrile to 38.4, hypotensive to 70s and placed on levophed. Initial labs with WBC 12.53, Cr 0.75, LFT wnl. PCT 0.44. UA > 50 WBC. CXR neg. CTAP with mild left-sided hydroureteronephrosis with associated urothelial thickening suggestive of an ascending infection; 3 mm left renal calculus, no ureteral calculi identified; mild cortical scarring of the superior pole left kidney redemonstrated, there is a 1.9 cm hypodense focus within the superior pole at the location of a previously noted low suspicion 1.1 cm lesion; this may represent increased size of a calyceal diverticulum or cyst, a developing renal abscess considered less likely; unchanged low suspicion 5.2 cm tubular cyst of the pelvis. UCx and BCx with E coli. She was been started on CTX. ID consulted 01/24. No issues with her hardware in left knee. No other prosthetic material or cardiac devices. She is off pressors. Did get a dose of hydrocortisone on admission. WBC is downtrending, remains afebrile. Culture susceptibility noted. TTE is ordered. If she continues to improve and no additional findings, plan will be for 14 days of abx, which can be completed with PO. Note, she does have a renal stone, which could be nidus for future infections. Should follow up with urology. # E coli bacteremia 2/2 UTI # Septic shock off pressors # Left hydroureteronephrosis, no ureteral calculus, left renal calculus # h/o recent lithotripsy and ureteral stent removal - f/u TTE - continue CTX 2g IV daily - if no new findings or concerns, plan will be for 14 days of abx, which can be completed with aumgentin 875mg PO three times daily (start date 01/23, end 02/06) - urology f/u for renal stone ID will discontinue active follow up at this time. Please do not hesitate to reconsult the Infectious Diseases service as needed. Vicky Lo MD [facility], Division of Infectious Diseases [employer]: [phone] Admission and Anticipated Discharge Date Admission Date: January 24, 2024 Subjective Subsequent visit was provided via telemedicine using two-way real-time interactive telecommunication between the patient and the telemedicine provider. For the duration of the visit, the provider was performing the assessment from a different facility than the patient. This includesuse of bluetooth stethoscope forauscultationperformed by the telepresenter that the telemedicine provider can hear if described in the physical exam. Reports Developer contact information: Please call [facility] Call Center . (Phone Number For Physician Use Only) After establishing a telemedicine visit, patient was: Patient was verified with two unique identifiers, Patient/authorized rep acknowledged consent and understanding and Gave permission to continue telehealth session Time Spent with Patient: Subsequent => 55 min Patient reports feeling well this morning. She does still have some suprapubic pain and back pain. Physical Exam Physical Exam: General: Awake, alert, no acute distress HEENT: NC/AT, EOMI, mmm Neck: supple Lungs: respirations non-labored Heart: nl peripheral perfusion Abdomen: soft, ttp in lower abdomen and across top Ext: no swelling or tenderness of left knee Skin: no rash Neuro: moving all extremities Results & Data Vital Signs (Past 12 Hours) Vital Signs Temp Pulse Pulse Resp BP Pulse Ox O2 Del Method 01/26/24 11:33 37.3 C 86 20 145/74 H 90 Nasal Cannula 01/26/24 08:00 76 01/26/24 07:49 36.9 C 71 18 164/98 H 90 Nasal Cannula 01/26/24 03:24 36.8 C 83 18 124/75 92 Nasal Cannula 01/26/24 02:02 88 22 90 Nasal Cannula 01/26/24 00:01 36.7 C 88 18 131/84 92 Nasal Cannula O2 Flow Rate 01/26/24 11:33 3 01/26/24 08:00 01/26/24 07:49 3 01/26/24 03:24 3 01/26/24 02:02 3 01/26/24 00:01 3 Laboratory Results Labs reviewed. Diagnostic Findings Imaging reviewed.
[2024-01-26] MEDS ORDERED: MoRPHine SULFATE 4 MG/ML 1 ML CARP\\VIAL IV PRN (16:19)
--- NOTE | 2024-01-26 18:12 | CT Scan Report ---
EXAM: CT Abdomen and Pelvis Without Intravenous Contrast INDICATION: Right flank pain. TECHNIQUE: Axial computed tomography images of the abdomen and pelvis without intravenous contrast. Sagittal and coronal reformatted images were created and reviewed. This CT exam was performed using one or more of the following dose reduction techniques: automated exposure control, adjustment of the mA and/or kV according to patient size, and/or use of iterative reconstruction technique. COMPARISON: 01/24/2024 and 05/05/2015 FINDINGS: Limitations: None. Lung bases: Increased atelectasis in the dependent portion of each lung base. Pleural space: Increased small layering bilateral pleural effusions. Heart: No abnormality noted. Mediastinum: No abnormality noted. ABDOMEN: Liver: Lack of intravenous contrast limits detection of some masses. No abnormality noted. Gallbladder and bile ducts: Cholecystectomy. No ductal dilation or stone noted. Pancreas: No pancreatic mass, calcification, inflammation or ductal dilation noted. Spleen: No significant abnormality noted. Adrenals: No significant abnormality noted. Kidneys and ureters: Stable mild left hydroureteronephrosis. There is a 1.5 x 1.2 x 0.9 cm hyperdensity in the upper pole of the left kidney which increased in size and became slightly ill-defined between 2015 and 2023. Stomach and bowel: Colonic diverticulosis without diverticulitis. No intestinal thickening or obstruction. PELVIS: Appendix: Well seen and appears normal. Bladder: Stable left paramedian cyst posterior to the bladder. Reproductive: Hysterectomy. ABDOMEN and PELVIS: Intraperitoneal space: No free air. No significant fluid collection. Bones/joints: Degenerative changes noted throughout the spine. No acute osseous abnormality seen. Soft tissues: Umbilical hernia containing fat. Infraumbilical midline ventral hernia repair intact. Vasculature: No abdominal aortic aneurysm. Lymph nodes: No pathologically enlarged lymph nodes. IMPRESSION: 1. Stable left hydroureteronephrosis. No stone. Distal ureteral or left UVJ occult obstruction not excluded. 2. Hyperdensity in the upper left kidney shown on previous exams to be a cyst although it enlarged and bec shown to be karey slightly ill-defined and larger on the most recent prior. Nonemergent renal ultrasound recommended. 3. Small layering bilateral pleural effusions. ACT 112: Negative or not required by law. Electronically signed by Karol Guadarrama 01-26-2024 6:12 PM
--- NOTE | 2024-01-26 18:29 | XCELERA ---
[id number]
[2024-01-26] MEDS: ALBUT/IPRATROP 3MG/0.5MG NEB 3 ML VIAL NEB PRN (20:25)
--- NOTE | 2024-01-26 20:48 | XRay Report ---
EXAM: XR chest 1V portable CLINICAL HISTORY: CHF. TECHNIQUE: An X-ray image of the chest is obtained in frontal projection. COMPARISON: prior 01/24/2024 FINDINGS: Suboptimal study due to under-penetration. Pulmonary Parenchyma: Bilateral increased broncho vascular markings likely lung congestion. No evidence of pleural effusion or pleural thickening. Heart and Mediastinum: increased cardiac size with prominent vascular vane. Bony Thorax: The bony thorax appears intact without fractures or deformities. degenerative changes in the spine. Soft Tissues: Soft tissues overlying the chest wall are unremarkable. IMPRESSION: 1. Bilateral increased broncho vascular markings likely lung congestion. 2. increased cardiac size with prominent vascular vane. 3. Appearances show mild progression since prior radiograph. Electronically signed by Dione Cooley 01-26-2024 8:47 PM
--- NOTE | 2024-01-26 21:38 | Electrocardiogram Report ---
Test Reason : Blood Pressure : */* mmHG Vent. Rate : 90 BPM Atrial Rate : 90 BPM P-R Int : 184 ms QRS Dur : 76 ms QT Int : 376 ms P-R-T Axes : 50 -1 25 degrees QTcB Int : 459 ms Normal sinus rhythm Low voltage QRS Cannot rule out Anterior infarct (cited on or before 06-Nov-2023) Nonspecific T wave abnormality Abnormal ECG When compared with ECG of 06-Nov-2023 15:42, No significant change was found Confirmed by Basil Neumann ([id number]) on 01/26/2024 9:37:30 PM Referred By: REFERRED SELF Confirmed By: Basil Neumann
[2024-01-27 08:25] LABS: Hematocrit (blood only) 29.8 % (37.0-47.0); Hemoglobin 9.9 g/dl (12.0-16.0); Mean Corpuscular Hgb Conc 33.2 g/dL (32.0-36.0); Mean Corpuscular Volume 87.4 fL (80.0-100.0); Mean Platelet Volume 10.3 fL (9.4-12.4); Platelet Count 188 K/uL (130-400); RDW Standard Deviation 41.4 fL (36.4-46.3); Red Blood Count 3.41 M/uL (4.20-5.40); White Blood Count 10.51 K/ul (4.8-10.8)
[2024-01-27 08:27] LABS: Basophils # (auto) 0.03 K/uL (0.00-0.20); Basophils % (auto) 0.3 %; Eosinophils # (auto) 0.01 K/uL (0.00-0.50); Eosinophils % (auto) 0.1 %; Immature Granulocytes # (auto) 0.08 K/uL (0.01-0.20); Immature Granulocytes % (auto) 0.8 %; Lymphocytes # (auto) 0.88 K/uL (1.20-3.40); Lymphocytes % (auto) 8.6 %; Monocytes # (auto) 0.53 K/uL (0.11-0.59); Monocytes % (auto) 5.2 %; Neutrophils # (auto) 8.75 K/uL (1.40-6.50)
[2024-01-27 08:41] LABS: BUN Creatinine Ratio 14.9 (10-20); Calcium 8.6 mg/dl (8.6-10.3); Creatinine Clr Calc Pharmacy 165.2 ml/min; Magnesium 1.8 mg/dl (1.7-2.4); Phosphorus 2.8 mg/dl (2.5-4.9); Potassium 3.5 mmol/L (3.5-5.1)
--- NOTE | 2024-01-27 10:40 | Hospitalist Progress Note ---
Date of Service January 27, 2024 Assessment & Plan (1) Sepsis: Plan: -septic shock from complicated UTI and recent stent removal -s/p IVF, pressors, and steroids -BP stable at this time -day #3 of rocephin -Blood cultures 2/2 for gram negative rods -E. coli -ID consult appreciated -echo to r/o endocarditis results pending -plan to d/c on 01/27, on augmentin 875mg PO TID from 01/23-02/06 (2) Complicated UTI (urinary tract infection): Plan: As noted (3) Hypothyroidism: Plan: Hypothyroidism Continue Synthroid (4) Hypertension: Plan: Carvedilol held for hypotension. Hydrochlorothiazide, olmesartan restarted (5) Diabetes mellitus, type 2: Plan: hyperglycemia protocol (6) Sleep apnea: Plan: CPAP nightly Plan DVT prophylaxis: Lovenox Disposition: stable for transfer to floor CODE STATUS: Full code Diet: DM2 Admission and Anticipated Discharge Date Admission Date: January 24, 2024 Subjective Pt had episode of abdominal pain last night, which as resolved. CT a/p negative. Review of Systems Review of Systems: CONST: Negative for fever, body aches and chills. HENT: Negative for neck pain/stiffness, headache, congestion, sore throat, swelling. EYES: Negative for discharge/pain or vision changes. RESP: Negative for cough/hemoptysis and shortness of breath. CV: Negative chest pain, difficulty breathing, palpitations. ABD: Negative pain, nausea, vomiting. : Negative increase frequency, dysuria, blood in urine or stool. MUSC: Negative for muscle aches, edema. SKIN: Negative rash, lesions/sores. NEURO: Negative headache, dizziness, weakness. Physical Exam Physical Exam: GENERAL APPEARANCE NAD, activity normal for age, well developed/ well nourished, no cyanosis, pallor, or diaphoresis. EYES lids/conjunctiva normal. EARS/NOSE/THROAT Mucous membranes moist, nares normal, lips/teeth normal uvula midline without oral pharyngeal erythema, exudate or swelling TMs normal bilaterally. No lymphangitis/lymphedema. HEAD/NECK normocephalic atraumatic, no facial trauma, neck is supple. RESPIRATORY respiratory effort normal, speaks in full sentences, no tripod position, no accessory muscle use. Lungs clear to auscultation without rhonchi, wheezes, rales CARDIAC Regular rate and rhythm, no edema. ABDOMINAL Soft, ND/NT. No evidence of fluid wave. No pulsatile masses on exam, rebound tenderness, Ortiz sign or pain over Mcburney's point. MUSCLES/EXTREMITIES No abnormal range of motion, no swelling. SKIN Warm, pink and dry. No rashes, dermatoses, petechiae or lesions. NEUROLOGICAL Speech is clear and appropriate. Normal level of consciousness. Gait and coordination are normal. 5/5 strength in all extremities. PSYCH Normal mood and affect. Judgement/competence is appropriate Results & Data Results & Data Vital Signs (Past 12 Hours) Vital Signs Temp Pulse Pulse Resp BP Pulse Ox O2 Del Method 01/27/24 08:00 72 01/27/24 07:41 37.4 C 85 16 146/77 H 95 Nasal Cannula 01/27/24 03:28 37.2 C 91 H 20 146/78 H 94 Nasal Cannula O2 Flow Rate 01/27/24 08:00 01/27/24 07:41 4 01/27/24 03:28 4 PG Care Time/CCT Total # of Minutes Spent Total Time Spent with Patient: Total time spent is greater than 50% in coordination of care (as documented) at patient's floor/unit and/or counseling patient: Coding Level of Care Code 44112 SUB INP/OBS CARE 2/35MIN Diagnoses Sepsis A41.9 Complicated UTI (urinary tract infection) N39.0 Hypothyroidism E03.9 Hypertension I10 Diabetes mellitus, type 2 E11.9 Sleep apnea G47.30
[2024-01-27] MEDS: carvediloL 25 MG TAB PO SCH (11:50)
[2024-01-27] MEDS: hydroCHLOROthiazide 25 MG TAB PO SCH ×2 (11:50→21:24)
[2024-01-28 07:37] LABS: Hematocrit (blood only) 30.9 % (37.0-47.0); Hemoglobin 10.4 g/dl (12.0-16.0); Mean Corpuscular Hemoglobin 29.4 pg (25.0-34.0); Mean Corpuscular Hgb Conc 33.7 g/dL (32.0-36.0); Mean Corpuscular Volume 87.3 fL (80.0-100.0); Mean Platelet Volume 10.1 fL (9.4-12.4); Platelet Count 211 K/uL (130-400); RDW Coefficient of Variation 12.7 % (11.5-14.5); RDW Standard Deviation 40.5 fL (36.4-46.3); Red Blood Count 3.54 M/uL (4.20-5.40); White Blood Count 8.38 K/ul (4.8-10.8)
[2024-01-28 07:42] VITALS: RESP 18
[2024-01-28 07:53] LABS: BUN Creatinine Ratio 17.6 (10-20); Calcium 8.9 mg/dl (8.6-10.3); Potassium 3.8 mmol/L (3.5-5.1)
--- NOTE | 2024-01-28 09:49 | Hospitalist Progress Note ---
Date of Service January 28, 2024 Assessment & Plan (1) Sepsis: Plan: -septic shock from complicated UTI and recent stent removal -s/p IVF, pressors, and steroids -BP stable at this time -day #4 of rocephin -Blood cultures 2/2 for gram negative rods -E. coli -ID consult appreciated -echo to r/o endocarditis negative, no vegitations -plan to d/c on 01/28, on augmentin 875mg PO TID from 01/23-02/06 (2) Fluid overload: Plan: -CXR showing pulmonary vascular congestion -pt still requring 4LNC, sats dropping to 87% on RA -will give lasix 80mg IV x1 follow by 40mg IV BID -monitor urine out put -re-evaluation of 02 requirments in am -if able to tolerate RA, d/c home (3) Complicated UTI (urinary tract infection): Plan: As noted (4) Hypothyroidism: Plan: Hypothyroidism Continue Synthroid (5) Hypertension: Plan: Carvedilol Hydrochlorothiazide, olmesartan (6) Diabetes mellitus, type 2: Plan: hyperglycemia protocol (7) Sleep apnea: Plan: CPAP nightly Plan -re-evaluation of 02 requirements in am -if able to tolerate RA, d/c home on augmentin Admission and Anticipated Discharge Date Admission Date: January 24, 2024 Subjective No events overnight. Pt had 2step home 02 evaluation today, 02 sats dropping to 87% on RA. Review of Systems Review of Systems: CONST: Negative for fever, body aches and chills. HENT: Negative for neck pain/stiffness, headache, congestion, sore throat, swelling. EYES: Negative for discharge/pain or vision changes. RESP: Negative for cough/hemoptysis and shortness of breath. CV: Negative chest pain, difficulty breathing, palpitations. ABD: Negative pain, nausea, vomiting. : Negative increase frequency, dysuria, blood in urine or stool. MUSC: Negative for muscle aches, edema. SKIN: Negative rash, lesions/sores. NEURO: Negative headache, dizziness, weakness. Physical Exam Physical Exam: GENERAL APPEARANCE NAD, activity normal for age, well developed/ well nourished, no cyanosis, pallor, or diaphoresis. EYES lids/conjunctiva normal. EARS/NOSE/THROAT Mucous membranes moist, nares normal, lips/teeth normal uvula midline without oral pharyngeal erythema, exudate or swelling TMs normal bilaterally. No lymphangitis/lymphedema. HEAD/NECK normocephalic atraumatic, no facial trauma, neck is supple. RESPIRATORY respiratory effort normal, speaks in full sentences, no tripod position, no accessory muscle use. Lungs clear to auscultation without rhonchi, wheezes, rales CARDIAC Regular rate and rhythm, no edema. ABDOMINAL Soft, ND/NT. No evidence of fluid wave. No pulsatile masses on exam, rebound tenderness, Ortiz sign or pain over Mcburney's point. MUSCLES/EXTREMITIES No abnormal range of motion, no swelling. SKIN Warm, pink and dry. No rashes, dermatoses, petechiae or lesions. NEUROLOGICAL Speech is clear and appropriate. Normal level of consciousness. Gait and coordination are normal. 5/5 strength in all extremities. PSYCH Normal mood and affect. Judgement/competence is appropriate Results & Data Results & Data Vital Signs (Past 12 Hours) Vital Signs Temp Pulse Pulse Pulse Pulse Pulse Pulse 01/28/24 08:13 83 85 79 72 01/28/24 07:41 36.4 C L 68 01/28/24 03:38 36.6 C 67 01/27/24 23:30 36.8 C 73 01/27/24 23:17 75 01/27/24 23:06 Resp Resp Resp Resp BP Pulse Ox Pulse Ox 01/28/24 08:13 18 18 18 87 L 01/28/24 07:41 18 137/85 96 01/28/24 03:38 16 152/86 H 97 01/27/24 23:30 18 169/89 H 95 01/27/24 23:17 01/27/24 23:06 Pulse Ox Pulse Ox Pulse Ox O2 Del Method O2 Flow Rate O2 Flow Rate O2 Flow Rate 01/28/24 08:13 90 90 86 L 1 2 01/28/24 07:41 Nasal Cannula 4 01/28/24 03:38 Room Air 01/27/24 23:30 Room Air 01/27/24 23:17 01/27/24 23:06 Room Air O2 Flow Rate 01/28/24 08:13 1 01/28/24 07:41 01/28/24 03:38 01/27/24 23:30 01/27/24 23:17 01/27/24 23:06 PG Care Time/CCT Total # of Minutes Spent Total Time Spent with Patient: Total time spent is greater than 50% in coordination of care (as documented) at patient's floor/unit and/or counseling patient: Coding Level of Care Code 23634 SUB INP/OBS CARE 2/35MIN Diagnoses Sepsis A41.9 Fluid overload E87.70 Complicated UTI (urinary tract infection) N39.0 Hypothyroidism E03.9 Hypertension I10 Diabetes mellitus, type 2 E11.9 Sleep apnea G47.30
[2024-01-28] MEDS: FUROSEMIDE 40 MG/4 ML VIAL IV ONE (10:21)
[2024-01-28 15:45] VITALS: BP 168/92; TEMP 97.9; O2SAT 93
--- NOTE | 2024-01-28 17:32 | Discharge Summary ---
Discharge Summary Date of Service January 28, 2024 Principal Dx & Hospital Course #1 = Principal Diagnosis (1) Sepsis: -septic shock from complicated UTI and recent stent removal -s/p IVF, pressors, and steroids -BP stable at this time -day #4 of rocephin -Blood cultures 2/2 for gram negative rods -E. coli -ID consult appreciated -echo to r/o endocarditis negative, no vegitations -plan to d/c on 01/28, on augmentin 875mg PO TID from 01/23-02/06 (2) Fluid overload: -CXR showing pulmonary vascular congestion -pt still requring 4LNC, sats dropping to 87% on RA -will give lasix 80mg IV x1 follow by 40mg IV BID -monitor urine out put -re-evaluation of 02 requirments in am -if able to tolerate RA, d/c home (3) Complicated UTI (urinary tract infection): As noted (4) Hypothyroidism: Hypothyroidism Continue Synthroid (5) Hypertension: Carvedilol Hydrochlorothiazide, olmesartan (6) Diabetes mellitus, type 2: hyperglycemia protocol (7) Sleep apnea: CPAP nightly Plan -re-evaluation of 02 requirements in am -if able to tolerate RA, d/c home on augmentin Admission HPI Per Admitting Provider Nemesio is a 58-year-old female past medical history of hyperlipidemia, hypertension, hypothyroidism, RASHIDA on CPAP, venous insufficiency improved post ablation 2021 who presents with suspected sepsis of urinary source. In the ER she is hypotensive, tachycardic, with a leukocytosis of 12.5, normal troponin, normal lactate, and upper limit of normal procalcitonin. UA is infected appearing, BioFire is negative. CTA/P: Left-sided hydroureteronephrosis with urothelial thickening suggestive of ascending infection/complicated UTI.Is recommended for admission for sepsis due to complicated UTI. Nemesio is seen at the bedside. She reports that he is feeling generally well following her lithotripsy and stent placement however the evening after having her stent taken out yesterday she started to feel unwell, feverish and chilly. She has had worsening shaking chills nausea and some low suprapubic tenderness with dysuria and polyuria today. She has not felt lightheaded or dizzy. No chest pain or chest pressure. No nausea/vomiting. No shortness of breath. Medical History: Reviewed Medications: Reviewed Surgical History: Reviewed Family history: Reviewed Allergies: Reviewed Social History: No tobacco/alcohol use Code Status: Full code Discharge Exam GENERAL APPEARANCE NAD, activity normal for age, well developed/ well nourished, no cyanosis, pallor, or diaphoresis. EYES lids/conjunctiva normal. EARS/NOSE/THROAT Mucous membranes moist, nares normal, lips/teeth normal uvula midline without oral pharyngeal erythema, exudate or swelling TMs normal bilaterally. No lymphangitis/lymphedema. HEAD/NECK normocephalic atraumatic, no facial trauma, neck is supple. RESPIRATORY respiratory effort normal, speaks in full sentences, no tripod position, no accessory muscle use. Lungs clear to auscultation without rhonchi, wheezes, rales CARDIAC Regular rate and rhythm, no edema. ABDOMINAL Soft, ND/NT. No evidence of fluid wave. No pulsatile masses on exam, rebound tenderness, Ortiz sign or pain over Mcburney's point. MUSCLES/EXTREMITIES No abnormal range of motion, no swelling. SKIN Warm, pink and dry. No rashes, dermatoses, petechiae or lesions. NEUROLOGICAL Speech is clear and appropriate. Normal level of consciousness. Gait and coordination are normal. 5/5 strength in all extremities. PSYCH Normal mood and affect. Judgement/competence is appropriate Discharge Plan Discharge Items Patient Disposition: Home - Self-Care Reason For Visit: COMPLICATED UTI, SEPSIS Discharge Diagnosis: E. coli sepsis, UTI Activity: Resume your previous activity Non-emergency contact: Primary Care Provider Call non-emergency contact if: you have any medication questions Follow-up/Referrals: Janna Law DO [Primary Care Provider] - Diet: Carb Consistent or DM2 Addtl Attending Provider Instructions: Follow up with pmd in 1 week Pending Studies at Discharge: No Stand-Alone Forms: My [facility], Smoking Cessation Medications and DC Order Prescriptions: New amoxicillin-pot clavulanate 875-125 mg tablet 1 tab PO TID Qty: 30 0RF Continued (DME) CPAP Supplies Misc See Rx Instructions .Route Qty: 1 0RF Rx Instructions: As directed gabapentin 300 mg capsule 600 mg PO HS Qty: 180 1RF triamcinolone acetonide 0.5 % cream 1 applic topical DAILY PRN (Reason: rash) Qty: 15 0RF pantoprazole 40 mg tablet,delayed release (DR/EC) 40 mg PO HS Qty: 90 1RF carvedilol 25 mg tablet 25 mg PO BID Qty: 180 2RF dulaglutide 1.5 mg/0.5 mL pen injector 1.5 mg subcut .weekly Qty: 2 3RF Patient Comments: takes on mon. allopurinol 100 mg tablet 100 mg PO HS Qty: 90 1RF duloxetine 60 mg capsule,delayed release(DR/EC) 60 mg PO QAM olmesartan 40 mg tablet 40 mg PO HS Qty: 90 1RF hydrochlorothiazide 25 mg tablet 25 mg PO UD Patient Comments: takes 25mg qam/12.5mg qpm Rx Instructions: 25 mg po qam and 12.5 mg po hs meloxicam 7.5 mg tablet 7.5 mg PO QAM Hold Instructions: pt put on hold d/t current illness Patient Comments: pt states taking multivitamin Capsule 2 cap PO QAM calcium carbonate-vitamin D3 [Calcium 500 + D (D3)] 500 mg(1,250mg) -125 unit Tablet 1 tab PO HS Probiotic 3 billion cell Capsule 3,000 mmu cells PO QAM turmeric 400 mg Capsule 400 mg PO QAM atorvastatin 20 mg tablet 20 mg PO QAM famotidine [Pepcid] 40 mg tablet 40 mg PO QAM levothyroxine 25 mcg tablet 25 mcg PO QAM phenazopyridine [Pyridium] 200 mg tablet 200 mg PO Q8H PRN (Reason: pain) Qty: 10 0RF tamsulosin 0.4 mg capsule 0.4 mg PO QAM Discontinued cephalexin [Keflex] 500 mg capsule 500 mg PO ONCE Qty: 4 2RF Rx Instructions: TAKE 4 CAPS ONE HOUR PRIOR TO PROCEDURE Discharge Orders: Discharge Order (Routine); Ordered 01/28/24 Ordered By: John Correa Admission Data Admit Date/Time: 01/24/24 19:08 Attending Provider: John Correa Admit Provider: Vernon Meneses Primary Care Provider: Janna Law Other Providers: Vernon Meneses; Poli Graham Hospital Stay Data Consultations 01/24/24 15:44 ED Decision to Admit Stat 01/24/24 21:36 Consult Manager Of Selection And Assessment Routine 01/25/24 09:55 Consult Infectious Diseases Routine Diagnostic Imagining Performed 01/24/24 12:09 CT abd pelvis IV con only Stat 01/26/24 16:20 CT Abdomen and Pelvis [CT abd pelvis wo con] Stat Pending Results Patient Have Any Pending Studies at Discharge: No Discharge Instructions Given to Patient (Per Discharging Provider) Follow up with pmd in 1 week Total Time Total Time Spent Total Time Spent (In Minutes): 50 Coding Level of Care Code 26192 INP/OBS DISCH >30 MIN Diagnoses Sepsis A41.9 Fluid overload E87.70 Complicated UTI (urinary tract infection) N39.0 Hypothyroidism E03.9 Hypertension I10 Diabetes mellitus, type 2 E11.9 Sleep apnea G47.30
[2024-01-28] MEDS: FUROSEMIDE 40 MG/4 ML VIAL IV SCH (17:57)
[2024-01-28 18:05] VITALS: PULSE 68
--- NOTE | 2024-01-30 15:41 | Coding Query ---
CODING QUERY To promote full compliance with coding requirements relating to patient care, provider participation is requested in all cases of medical records coder uncertainty. Please assist us with the question(s) below: Coding Question(s): There is documentation in the record of, "Sepsis due to complicated UTI, recent stent removal", and the H&P documents, "Sepsis due to complicated UTI, recent stent removal", and the Discharge Summary documents, "Sepsis: -septic shock from complicated UTI and recent stent removal". Please specify, in your clinical opinion, to determine if there is possible complication of infection from recent stent removal, or not: ( x) Sepsis due to complicated UTI is possibly caused by complication of infection from recent procedure of stent removal. ( ) Sepsis due to complicated UTI is NOT possibly caused by complication of infection from recent procedure of stent removal. ( ) Other: Please Specify Physician's Response(s): Thank you Ronda Ford Principal Diagnosis: "that condition established after study, to be chiefly responsible for occasioning the admission of the patient to the hospital for care." Co-Existing Principal Diagnosis: "when two or more diagnoses equally meet the criteria for principal diagnosis as determined by the circumstances of admission, diagnostic work up, and/or therapy provided, and the Alphabetic Index, Tabular List, or another coding guideline does not provide sequencing direction, any one of the diagnoses may be sequenced first." "When the physician has documented what appears to be a current diagnosis in the body of the record, but has not included the diagnosis in the final diagnostic statement, the physician should be asked whether the diagnosis should be added." (Source Coding [facility] 2 QTR90. p3-4) [facility]
== END 2024-01-28 18:58 | disposition home or self-care (01) | DRG 862 ==
LOC: ED 10:27 → 1E 19:08 → SUATTDRO 19:08 → 1E 21:02 → 2N 01-25 13:26